=== PATIENT | female | born 1975 | race Caucasian/White ===

== ENCOUNTER → 2020-09-20 13:35 | Outpatient (BNVA) | payer OTHER, SELFPAY | PROVIDERS: PCP Internal Medicine; Visit Provider Anesthesiology | DX: S84.1 Injury of peroneal nerve at lower leg level (principal); X58.XXXS Exposure to other specified factors, sequela; M51.36 Other intervertebral disc degeneration, lumbar region | CPT/HCPCS: 99202 ==

== ENCOUNTER 2020-09-24 09:13 | Outpatient (REF) | payer OTHER, SELFPAY ==
[2020-09-24 11:50] LABS: Alanine Aminotransferase 33 U/L (0-31); Albumin Level 4.5 g/dL (3.5-5.0); Alkaline Phosphatase 58 U/L (39-117); Anion Gap 12 (12-20); Aspartate Amino Transferase 21 U/L (5-31); Bilirubin Total 0.6 mg/dL (0.0-1.0); Blood Urea Nitrogen 10 mg/dL (9-16); Calcium 8.8 mg/dL (8.4-10.2); Carbon Dioxide 25 mmol/L (22-29); Chloride 105 mmol/L (96-108); Cholesterol 180 mg/dL; Estimated Glomerular Filt Rate > 60; Glucose Fasting 87 mg/dL (60-99); HDL Cholesterol 46 mg/dL; LDL Cholesterol Calculated 102 mg/dl; Sodium 138 mmol/L (135-145); Total Protein 7.3 g/dL (6.5-8.0); Triglycerides 162 mg/dL
== END 2020-09-24 09:14 | disposition home or self-care (01) ==
LOC: HO.HMGCLDS 09:13
PROVIDERS: PCP Internal Medicine; Visit Provider Internal Medicine
DX: E78.2 Mixed hyperlipidemia (principal)
CPT/HCPCS: 80053; 80061

== ENCOUNTER → 2020-10-28 16:06 | Outpatient (BNVA) | payer OTHER, SELFPAY | PROVIDERS: PCP Internal Medicine; Referring Provider Internal Medicine; Visit Provider Anesthesiology | DX: M51.36 Other intervertebral disc degeneration, lumbar region (principal); M46.1 Sacroiliitis, not elsewhere classified; S84.1 Injury of peroneal nerve at lower leg level | CPT/HCPCS: 99212 ==

== ENCOUNTER 2020-11-23 06:08 | Outpatient (REF) | payer OTHER, SELFPAY ==
--- NOTE | 2020-11-23 08:12 | FL_ITS ---
EXAMINATION: XR FLUOROSCOPY WITH IMAGES CLINICAL INFORMATION: M46.1 - Sacroiliitis COMPARISON: None. TECHNIQUE: Fluoroscopy performed by Carolina Bruno NP. Fluoroscopy time: 0.2 minutes DAP: 1.33 Gycm2 Images: 2 FINDINGS: There are spinal needles overlying the lower aspect bilateral SI joints. There is periarticular contrast and probable trace intra-articular contrast. No vascular communication. FL/FL guidance in treatment room IMPRESSION: Fluoroscopy for pain management procedures.
== END 2020-11-23 06:09 | disposition home or self-care (01) ==
LOC: HO.RADIR 06:08
PROVIDERS: Visit Provider Anesthesiology
DX: M46.1 Sacroiliitis, not elsewhere classified (principal); S84.1 Injury of peroneal nerve at lower leg level; M51.36 Other intervertebral disc degeneration, lumbar region
CPT/HCPCS: 27096; J3300; Q9967

== ENCOUNTER → 2021-01-03 09:51 | Outpatient (BNVA) | payer OTHER, SELFPAY | PROVIDERS: PCP Internal Medicine; Visit Provider Anesthesiology | DX: M51.36 Other intervertebral disc degeneration, lumbar region (principal); M46.1 Sacroiliitis, not elsewhere classified; S84.1 Injury of peroneal nerve at lower leg level | CPT/HCPCS: 99212 ==

== ENCOUNTER 2021-02-18 10:01 | Outpatient (REF) | payer OTHER, SELFPAY ==
[2021-02-18 11:17] LABS: MANUAL DIFF FLAG NO
[2021-02-18 11:37] LABS: Basophils Percent Auto 0.3 % (0-2); Eosinophils Absolute Auto 0.1 X10*3/uL (0.0-0.4); Hematocrit 38.6 % (37-47); Imm Gran Abs Auto 0.05 X10*3/uL (0.00-0.03); Imm Gran Pct Auto 0.6 % (0.0-0.4); Lymphocytes Absolute Auto 1.7 X10*3/uL (1.2-4.9); Lymphocytes Percent Auto 19.6 % (20-40); Mean Corpuscular HGB Conc 33.7 g/dl (31.0-35.0); Mean Corpuscular Volume 88.9 fL (80-98); Mean Platelet Volume 10.4 fL (9.4-12.3); Monocytes Absolute Auto 0.7 X10*3/uL (0.1-1.2); Monocytes Percent Auto 7.9 % (2-11); Neutrophils Absolute Auto 6.3 X10*3/uL (2.0-8.3); Neutrophils Percent Auto 70.6 % (45-73); Platelet Count 295 X10*3/uL (160-400); Red Blood Count 4.34 X10*6/uL (4.20-5.50); Red Cell Distribution Width 13.2 % (11.0-16.0); White Blood Count 8.9 X10*3/uL (4.8-10.8)
== END 2021-02-18 10:02 | disposition home or self-care (01) ==
LOC: HO.HMGCLDS 10:01
PROVIDERS: PCP Internal Medicine; Visit Provider Internal Medicine
DX: M46.1 Sacroiliitis, not elsewhere classified (principal)
CPT/HCPCS: 36415; 85025

== ENCOUNTER → 2021-03-03 13:38 | Outpatient (BNVA) | payer OTHER, SELFPAY | PROVIDERS: PCP Internal Medicine; Visit Provider Anesthesiology ==

== ENCOUNTER → 2021-04-25 10:41 | Outpatient (BNVA) | payer OTHER, SELFPAY | PROVIDERS: PCP Internal Medicine; Visit Provider Anesthesiology ==

== ENCOUNTER 2021-06-17 11:05 | Day surgery (SDC) | payer OTHER, SELFPAY ==
--- NOTE | 2021-06-16 08:23 | P.CONAN_ITS ---
Documented by User: Muna Laraney 06/16/21 08:23 HPI - Anesthesia Eval Consult details Narrative: 45yo F for Spinal Cord Stimulation Trial PMFSH Active Problems Active Problems: All Active Problems (Updated 04/25/21 @ 11:02 by Sergei Russell MD) Left leg weakness (Acute) Complex regional pain syndrome type 2 (Acute) Complex regional pain syndrome (Acute) Foot drop, left (Acute) Sacroiliitis (Acute) HTN (hypertension) (Acute) Cervical radiculopathy (Acute) Disc degeneration, lumbar (Acute) Peroneal nerve injury (Acute) Past Medical History Medical History Cervical radiculopathy Complex regional pain syndrome Complex regional pain syndrome type 2 Disc degeneration, lumbar Foot drop, left History of mammogram HTN (hypertension) Hyperlipidemia Left leg weakness Sacroiliitis Family History Family History Father Lung cancer Smoker Mother HTN (hypertension) Diabetes mellitus Brother No problems noted. Son No problems noted. Daughter No problems noted. Surgical History Surgical History H/O colonoscopy Hx of appendectomy S/P breast implant, silicone Social History Social History Alcohol intake: current Alcohol intake frequency: a few times a month Patient Tobacco Use Status: Never used Tobacco Use of substances other than those prescribed or required for medical reasons: No Are you DNR?: No Advance Directives: No Advance Directives Information Provided: Yes Recently lost weight without trying: No Nutrition Risks: No Nutritional Risk Meds Allergies Allergy/AdvReac Type Severity Reaction Status Date / Time pravastatin Allergy Unknown Stomach Verified 04/25/21 10:42 Upset lisinopril AdvReac cough Verified 04/25/21 10:42 Home Medications Medication Instructions Recorded Confirmed Last Taken Type gabapentin 100 mg capsule 300 mg PO BEDTIME 09/20/20 03/17/21 Unknown History Exam Exam Date and Time: June 16, 2021 0823 Assessment and Plan Assessment Anesthesia Assessment: Chart Reviewed Documented by User: Alexia Guillen MD 06/17/21 11:52 [facility] Past Medical History Medical History Cervical radiculopathy Complex regional pain syndrome Complex regional pain syndrome type 2 Disc degeneration, lumbar Foot drop, left History of mammogram HTN (hypertension) Hyperlipidemia Left leg weakness Sacroiliitis Family History Family History Father Lung cancer Smoker Mother HTN (hypertension) Diabetes mellitus Brother No problems noted. Son No problems noted. Daughter No problems noted. Family history of problems with anesthesia: No Surgical History Surgical History H/O colonoscopy Hx of appendectomy S/P breast implant, silicone History of Problems with Anesthesia: No Social History Social History Alcohol intake: current Alcohol intake frequency: a few times a month Patient Tobacco Use Status: Never used Tobacco Use of substances other than those prescribed or required for medical reasons: No Are you DNR?: No Advance Directives: No Advance Directives Information Provided: Yes Recently lost weight without trying: No Nutrition Risks: No Nutritional Risk Meds Allergies Allergy/AdvReac Type Severity Reaction Status Date / Time pravastatin Allergy Unknown Stomach Verified 04/25/21 10:42 Upset lisinopril AdvReac cough Verified 04/25/21 10:42 Home Medications Medication Instructions Recorded Confirmed Last Taken Type gabapentin 100 mg capsule 300 mg PO BEDTIME 09/20/20 03/17/21 Unknown History Exam Height,Weight and Vital Signs: Height 5 ft 4 in Weight 62.596 kg Vital Signs Temp Pulse Resp BP Pulse Ox 06/17/21 11:23 98.7 F 73 16 145/95 H 95 Pertinent Lab Results Pertinent Lab Results: Lab Results 06/17/21 Range/Units 11:03 Urine Test NEGATIVE (NEGATIVE) Airway Mallampati Class: II TM Dist: >3cm Neck ROM: Full (A little discomfort with extension) Partial: Upper Heart: RRR Lungs: CTAB Assessment and Plan Final Anesthetic Review Family History of Problems with Anesthesia: No History of Problems with Anesthesia: No NPO: Yes ASA Class: II Final Preanesthetic Review: No Changes in Pt Med Stat, Meds/Allgs Chart Reviewed, Consent Obtained/Reviewed and Anes Risks/Benef Reviewed Patient Risk: Low Procedure Risk: Low Assessment/Block/Sedation in SS: Assess/Block/Sedation-SS Anesthetic Plan Anesthetic Plan: MAC: Disposition: Standard PACU
--- NOTE | ~2021-06-17 | FL_ITS ---
EXAMINATION: XR FLUOROSCOPY WITH IMAGES CLINICAL INFORMATION: Stimulator trial COMPARISON: None. TECHNIQUE: Fluoroscopy performed by Dr. Russell. Fluoroscopy time: 1.7 minutes DAP: 9.52 Gycm2 FINDINGS: Stimulator catheters are seen from T8 to T11. FL/FL guidance in OR IMPRESSION: Stimulator trial.
[2021-06-17 11:17] VITALS: BMI 23.6
[2021-06-17 11:22] LABS: UPreg QC Valid YES; Urine Pregnancy NEGATIVE (NEGATIVE)
[2021-06-17 11:23] VITALS: BP 145/95; PULSE 73; RESP 16; TEMP 37.1; O2SAT 95
[2021-06-17] MEDS: Lactated Ringers 1,000 ML 100 ML IVCONT (11:59)
--- NOTE | 2021-06-17 13:08 | MHC.SHP ---
Pre-Procedural Eval Section A Date of Service: 06/17/21 The patient is an INPATIENT: No Changes since office visit: Yes Patient answered all questions The History & Physical has been completed within 30 days and I have reviewed it.: No Section B Chief Complaint: pain syndrome Details of Present Illness: CRPS LE Relevant Family History (Specify if Yes): No Relevant Social History: None Present Medications: see Short Stay Collaborative assessment Medical History: No relevant PMH History of Previous Operations: Relevant previous surgery/procedure and date(s) Allergies: Allergies Allergy/AdvReac Type Severity Reaction Status Date / Time pravastatin Allergy Unknown Stomach Verified 04/25/21 10:42 Upset lisinopril AdvReac cough Verified 04/25/21 10:42 Review of Systems Sugical H&P ROS: Negative: Constitution, Cardiovascular, Respiratory, Neurological, Psychiatric, Hem-Onc, Allergic/Immunologic, Gastrointestinal, Genitourinary, Musculoskeletal, Integumentary, Endocrine and Eyes/Ears/Nose/Throat Exam Surgical H&P Exam: Normal: HEENT, Normal: Heart, Normal: Lungs, Normal: Extremities, Normal: Abdomen, Normal: Skin and Normal: Neurological Plan Diagnosis/Plan: Unchanged I have reviewed the history and physical and performed a pertinent physical examination on my patient. No changes have occurred unless specified.
[2021-06-17 14:40] VITALS: BP 122/76; PULSE 68; RESP 16; TEMP 36.4; O2SAT 98
--- NOTE | 2021-06-17 14:47 | PM.OP ---
Brief Operative Note Date of Service: 06/27/21 Pre-op diagnosis: Complex regional pain syndrome left lower extremity, chronic back pain, chronic pain syndrome Post-op diagnosis: same Procedure: Trial of [employer] Implants: None per Surgeon: Sergei Russell MD Anesthesia: MAC Was an Regulatory Submissions Associate used for this Procedure?: No Estimated blood loss (mL): 0 Condition: stable Disposition: PACU
--- NOTE | 2021-06-17 14:49 | W.PM.OPN ---
Operative Note Operative Note Date of Service: 06/17/21 Narrative: Winter Melton is very pleasant 45 years old female who came today the operating room for the trial of spinal cord stimulation [employer] machine for the treatment of Complex regional pain syndrome of the left lower extremity and chronic back pain. After obtaining informed consent patient was brought to the operating room, SHE was positioned prone on operating table, [employer] monitors were applied and patient was deeply sedated.? The patient was taken inside of the operating room where she was positioned prone on the operating table.? Time-out was performed delineating correct site, side, the nature of the procedure, patient's allergy, preoperative antibiotic if needed.? All operating room staff was participating in OR time-out procedure. Patient's entire back was prepped with ChloraPrep twice and draped with full body fenestrated drape.? Sterilely draped C-arm was brought over operating field and sqare picture of T11-T12 L1 L2 vertebrae as were demonstrated on the screen.? Attention FIRST? was concentrated on the L1-L2 epidural interspace.? The location of the projection of the right pedicle center of the L3 vertebra was found on the skin using C-arm.? This location was injected with mixture of lidocaine 2% and Marcaine 0.5% 5 cc.? After that 11 blade was used to make a cruz on the skin.? 10 cm 14 gauge curved introducer epidural needle was inserted through the cruz and advanced to L1- L2 epidural interspace.? The advancement of the needle was performed on anterior posterior and lateral views.? Guitar wire and loss of resistance technique were used to locate epidural space.? When guitar wire was spread in the epidural fashion, epidural lead was inserted through the skin and it was advanced to T8 position SLIGHTLY RIGHT OF THE MIDLINE.? After that location of the projection of the LEFT pedicle center of the L3 vertebra was found on the skin using C-arm.? This location was injected with mixture of lidocaine 2% and Marcaine 0.5% 5 cc.? After that 11 blade was used to make a cruz on the skin.? 10 cm 14 gauge curved introducer epidural needle was inserted through the cruz and advanced to L1-L2 epidural interspace.? The advancement of the needle was performed on anterior posterior and lateral views.? Guitar wire and loss of resistance technique were used to locate epidural space.? When guitar wire was spread in the epidural fashion, epidural lead was inserted through the needle and advanced to the T8 epidural interspace slightly left to the midline. At this moment patient was awaken and the epidural leads were connected to the testing device.? The patient reported stimulation corresponding to her pain.? After satisfactory position of the leads were established the needles were withdrawn, the stylette wires were removed from the epidural leads.? The anchoring devices were dislodged on the leads and advanced to the level of the skin.? The anchoring devices were sutured with two 0-0 silk sutures to the skin of the patient.? The leads were connected to testing device.? Bacitracin ointment was applied to the entrance point of bilateral needles.? Sterile dressing was applied to the patient's back.? The testing device was also glued to the patient's back.? Upon completion of the procedure the patient was awake and she was transfered to the PACU where she recovered uneventfully
[2021-06-17 14:55] VITALS: BP 137/79; PULSE 61; RESP 16; O2SAT 99
[2021-06-17] MEDS: oxyCODONE HCl Immed Release 5 MG TABLET PO (14:55)
[2021-06-17] MEDS: Acetaminophen 325 MG TABLET 650 MG PO (14:55)
[2021-06-17 15:10] VITALS: BP 143/81; PULSE 61; RESP 16; O2SAT 99
[2021-06-17 15:31] VITALS: BP 150/78; PULSE 65; RESP 16; TEMP 36.4; O2SAT 96
== END 2021-06-17 16:09 | disposition home or self-care (01) ==
PROVIDERS: Nurse Practitioner; PCP Internal Medicine; Visit Provider Anesthesiology
PROC: (CPT 63650; principal; 2021-06-17 13:00)
DX: G57.72 Causalgia of left lower limb (principal); M54.5 Low back pain; M46.1 Sacroiliitis, not elsewhere classified; R53.1 Weakness; M21.372 Foot drop, left foot; M51.36 Other intervertebral disc degeneration, lumbar region; I10 Essential (primary) hypertension; E78.5 Hyperlipidemia, unspecified; Z98.82 Breast implant status
CPT/HCPCS: 63650 ×2; 81025; C1778; J0690; J2250; J2405; J3010

== ENCOUNTER → 2021-06-23 10:32 | Outpatient (BNVA) | payer OTHER, SELFPAY | PROVIDERS: PCP Internal Medicine; Visit Provider Nurse Practitioner Family | DX: S84.12XD Injury of peroneal nerve at lower leg level, left leg, subsequent encounter (principal); M51.36 Other intervertebral disc degeneration, lumbar region; M21.372 Foot drop, left foot; G56.40 Causalgia of unspecified upper limb | CPT/HCPCS: 99212 ==

== ENCOUNTER 2021-07-22 07:00 | Outpatient (RCR) | payer OTHER, SELFPAY ==
--- NOTE | 2021-04-07 15:41 | MHC.PT.EP ---
[facility] [place] Office [place] Office [place] Office [address] Gustavo Quintero [address] [phone] F: [phone] F: [phone] F: [phone] F: [phone] Physical Therapy Plan of Care Date of Evaluation: Date of Surgery: Diagnosis: LEFT LE WEAKNESS , LUMBAR DISC DEGENERATION Assessment: 45 YO FEMALE REF TO PT FOR LEFT FOOT DROP, LUMBAR DISC DEGENERATION, COMPLEX REGIONAL PAIN SYNDROME S/P SUSTAINING A FALL ONTO LEFT SIDE ON 05/11/20. 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 OBJECTIVELY, Pt HAS PAIN IN LB/ LEFT DISTAL LE/ KNEE; LIMITED AROM LEFT DISTAL LE, WEAKNESS IN LEFT LE AND ESPEC DF/EVER W HYPERSENSITIVITY. FUNCTIONALLY, Pt HAS DECR GAIT MICHELLE (NO AD EXCEPT FOR LEFT AFO), LIMITED W ADLs REQ LIFTING/ BENDING/ JUMPING/ HIGHER LEVEL HOUSEWORK- SHE IS ABLE TO DRIVE AND IS INDEP W DRESSING. Pt HAS HAD PREVIOUS OFF-SITE PT THROUGH 04/05/2021. Frequency and Duration: The patient will be seen 2 x WK x 5 WKS Short Term Goals: Pt JAYANTON WFL PROX LEs FLEXIB AND IMPROVED PELVIC SYMM IN 2 WKS Pt [place] IMPROVED GAIT MECH LEVEL AND STAIRS IN 2 WKS Pt'S PAIN DECR TO 3-4/10 IN LB AND DISTAL LEFT LE IN 3 WKS Coater Smoking Pipe Goals: Pt INDEP W HEP AND SELF-SX MGMT TECHN IN 5 WKS Pt [place] IMPROVED FUNCT MOB MICHELLE EVIDENT W IMPROVED LEFT BY AT LEAST 10 POINTS( AT EVAL 10/80) IN 5 WKS Treatment Plan: Modalities to reduce pain, spasms and effusion. Manual therapy to restore motion and function. Therapeutic exercise to improve strength and flexibility. Neuromuscular re-education for posture and balance. Therapeutic activities to return to functional activities of daily living. Electronically signed by: Terri Christianson,PT Please sign and return to therapist. Thank you for your referral.
--- NOTE | 2021-07-22 09:37 | MHC.PT.DC ---
[facility] [place] Office [place] Office [place] Office [address] Gustavo Quintero [address] [phone] F: [phone] F: [phone] F: [phone] F: [phone] Physical Therapy Discharge Report Diagnosis: LEFT LE WEAKNESS , LUMBAR DISC DEGENERATION Date of Surgery: NA Date of Evaluation: 04/06/21 Date of Discharge: 07/22/21 Treatments to Date: 18 Cancellations to Date: 0 No Shows to Date: 1 Discharge Status: Independent with HEP Patient Elected to Stop Discharge Summary: Pt with minimal-no change since last re-assessment 05/24. She reports she would like to be d/c today as she will be changing to another PT clinic to include her R UE/neck as well as continue with her low back/ R LE and foot. She feels that she has made minimal progress but that the therapy has helped maintain her current status. Reviewed HEP and pacing. No further questions. Electronically signed by: Natalie Jackson PT Please sign and return to therapist. Thank you for your referral.
== END 2021-07-22 09:38 | disposition home or self-care (01) ==
LOC: HO.PTCHIC 07:00
PROVIDERS: PCP Internal Medicine; Visit Provider Internal Medicine
DX: M51.36 Other intervertebral disc degeneration, lumbar region (principal); R29.898 Other symptoms and signs involving the musculoskeletal system
CPT/HCPCS: 97110; 97112; 97140; 97163

== ENCOUNTER → 2021-08-11 10:58 | Outpatient (BNVA) | payer OTHER, SELFPAY | PROVIDERS: PCP Internal Medicine; Visit Provider Anesthesiology ==

== ENCOUNTER 2021-08-18 10:52 | Day surgery (SDC) | payer OTHER, SELFPAY ==
[2021-08-12 10:15] VITALS: BMI 23.3
--- NOTE | 2021-08-17 11:00 | HO.ANESPROP2 ---
Documented by User: Muna Sharp NP 08/17/21 11:03 HPI - Anesthesia Eval Consult details Narrative: 45yo F for Lumbar Spinal Stimulation Implant s/p Spinal Cord Stimulation Trial 06/2021 with MAC PMFSH Active Problems Active Problems: All Active Problems (Updated 06/27/21 @ 13:22 by Carolina Bruno NP) Peroneal nerve injury (Acute) Left leg weakness (Acute) Complex regional pain syndrome type 2 (Acute) Complex regional pain syndrome (Acute) Foot drop, left (Acute) Sacroiliitis (Acute) HTN (hypertension) (Acute) Cervical radiculopathy (Acute) Disc degeneration, lumbar (Acute) Past Medical History Medical History Cervical radiculopathy Complex regional pain syndrome Complex regional pain syndrome type 2 Disc degeneration, lumbar Foot drop, left History of mammogram HTN (hypertension) Hyperlipidemia Left leg weakness Sacroiliitis Family History Family History Father Lung cancer Smoker Mother HTN (hypertension) Diabetes mellitus Brother No problems noted. Son No problems noted. Daughter No problems noted. Family history of problems with anesthesia: No Surgical History Surgical History H/O colonoscopy Hx of appendectomy S/P breast implant, silicone S/P insertion of spinal cord stimulator History of Problems with Anesthesia: No Social History Social History Alcohol intake: current Alcohol intake frequency: a few times a month Patient Tobacco Use Status: Never used Tobacco Advance Directives Information Provided: No Meds Allergies Allergy/AdvReac Type Severity Reaction Status Date / Time pravastatin Allergy Unknown Stomach Verified 08/11/21 11:06 Upset lisinopril AdvReac cough Verified 08/11/21 11:06 Exam Exam Date and Time: August 17, 2021 1100 Height,Weight and Vital Signs: Height 5 ft 4 in Weight 61.689 kg Assessment and Plan Assessment Anesthesia Assessment: Chart Reviewed Final Anesthetic Review Family History of Problems with Anesthesia: No History of Problems with Anesthesia: No Documented by User: Alexia Guillen MD 08/18/21 12:28 [facility] Past Medical History Medical History Cervical radiculopathy Complex regional pain syndrome Complex regional pain syndrome type 2 Disc degeneration, lumbar Foot drop, left History of mammogram HTN (hypertension) Hyperlipidemia Left leg weakness Sacroiliitis Family History Family History Father Lung cancer Smoker Mother HTN (hypertension) Diabetes mellitus Brother No problems noted. Son No problems noted. Daughter No problems noted. Surgical History Surgical History H/O colonoscopy Hx of appendectomy S/P breast implant, silicone S/P insertion of spinal cord stimulator Social History Social History Alcohol intake: current Alcohol intake frequency: a few times a month Patient Tobacco Use Status: Never used Tobacco Advance Directives Information Provided: No Meds Allergies Allergy/AdvReac Type Severity Reaction Status Date / Time pravastatin Allergy Unknown Stomach Verified 08/11/21 11:06 Upset lisinopril AdvReac cough Verified 08/11/21 11:06 Exam Height,Weight and Vital Signs: Height 5 ft 4 in Weight 61.689 kg Vital Signs Temp Pulse Resp BP Pulse Ox 08/18/21 11:17 99.4 F 70 16 135/87 98 Pertinent Lab Results Pertinent Lab Results: Lab Results 08/18/21 Range/Units 10:59 Urine Test NEGATIVE (NEGATIVE) Airway Mallampati Class: II TM Dist: >3cm Neck ROM: Full Partial: Upper Heart: RRR Lungs: CTAB Assessment and Plan Assessment Anesthesia Assessment: Anesthesia Plan Discussed Final Anesthetic Review NPO: Yes ASA Class: II Final Preanesthetic Review: No Changes in Pt Med Stat, Meds/Allgs Chart Reviewed, Consent Obtained/Reviewed and Anes Risks/Benef Reviewed Patient Risk: Low Procedure Risk: Intermediate Assessment/Block/Sedation in SS: Assess/Block/Sedation-SS Anesthetic Plan Anesthetic Plan: MAC: Disposition: Standard PACU
[2021-08-18] VITALS (8 sets, daily range): BP systolic 108–135; BP diastolic 64–87; PULSE 57–72; RESP 14–16; TEMP 36.4–37.4; O2SAT 98–100
--- NOTE | ~2021-08-18 | FL_ITS ---
EXAMINATION: XR FLUOROSCOPY WITH IMAGES CLINICAL INFORMATION: Lumbar spinal stimulation implant. COMPARISON: None. TECHNIQUE: Fluoroscopy performed by Dr. Sergei Russell. Fluoroscopy time: 2.0 minutes DAP: 6.98 mGycm2 Images: 2 FINDINGS: There is lower dorsal posterior epidural electrodes extending from T9 to T10-T11 disc level. Visualized vertebral heights and alignment is normal. No lytic or sclerotic process seen. FL/FL guidance in OR IMPRESSION: Fluoroscopy was provided to Dr. Russell for pain management.
--- NOTE | 2021-08-18 07:59 | MHC.SHP ---
Pre-Procedural Eval Section A Date of Service: 08/18/21 The patient is an INPATIENT: No Changes since office visit: Yes Patient answered all questions The History & Physical has been completed within 30 days and I have reviewed it.: No Section B Chief Complaint: Complex regional pain syndrome type 2 Details of Present Illness: pain in the extremity Relevant Family History (Specify if Yes): No Relevant Social History: None Present Medications: see Short Stay Collaborative assessment Medical History: No relevant PMH History of Previous Operations: Relevant previous surgery/procedure and date(s) Allergies: Allergies Allergy/AdvReac Type Severity Reaction Status Date / Time pravastatin Allergy Unknown Stomach Verified 08/11/21 11:06 Upset lisinopril AdvReac cough Verified 08/11/21 11:06 Review of Systems Sugical H&P ROS: Negative: Constitution, Cardiovascular, Respiratory, Neurological, Psychiatric, Hem-Onc, Allergic/Immunologic, Gastrointestinal, Genitourinary, Musculoskeletal, Integumentary, Endocrine and Eyes/Ears/Nose/Throat Exam Surgical H&P Exam: Normal: HEENT, Normal: Heart, Normal: Lungs, Normal: Extremities, Normal: Abdomen, Normal: Skin and Normal: Neurological Plan Diagnosis/Plan: Unchanged I have reviewed the history and physical and performed a pertinent physical examination on my patient. No changes have occurred unless specified.
--- NOTE | 2021-08-18 08:01 | P.OP_ITS ---
Operative Note Operative Note Date of Service: 08/18/21 Narrative: Winter is very pleasant 45 years old female? came today into the operating room for implantation of spinal cord stimulator for the treatment of pain Complex regional pain syndrome of the left lower extremity. ? She had successful trial of spinal cord stimulation.? Preoperatively patient received? 1 g cefazolin _approximately 20 minutes before the procedure. After obtaining informed consent patient was brought to the operating room,? she was positioned prone on operating table, [employer] [employer] monitors were applied and patient was deeply sedated. ?? Time-out was performed delineating correct site, side, the nature of the procedure, patient's allergy, preoperative antibiotic.? All operating room staff was participating in OR time-out procedure. Patient's entire back was prepped with ChloraPrep twice and draped with full body drape including Ioban film.? Sterilely draped C-arm was brought over operating field and sqare picture of T12, L1, L2 vertebrae were demonstrated on the screen.? THE PROJECTION OF L2-L3 SPINAL PROCESSES TO THE SKIN WERE INFILTRATED WITH LIDOCAINE 2% MIXED WITH BUPIVACAINE 0.5%.? Six CM LONG VERTICAL INCISION using 10 blade scalpel WAS PERFORMED IN STRICT MIDLINE VERTICAL FASHION.? THOROUGH HEMOSTASIS WAS PERFORMED using electrocautery.? ?Thorough tissue dissections was performed until prevertebral fascia was freed from overlying tissues.? Attention FIRST? was concentrated on the RIGHT? L1-L2 epidural interspace.? The location of the projection of the right pedicle center of the L3 vertebra was found on the prevertebral fascia using C-arm.? This location was injected with mixture of lidocaine 2% and Marcaine 0.5% 5 cc in approximate direction of needle advancement..? After that ? 10 cm 14 gauge Straight introducer epidural needle was inserted through the fascia and advanced toward L1-L2 epidural interspace.? The advancement of the needle was performed on anterior posterior and lateral views.? Guitar wire and loss of resistance technique were used to locate epidural space.? When guitar wire was spread in the epidural fashion, epidural lead was inserted through needle and started to advance in posterior epidural space to the thoracic vertebra T9-T10 without difficulty. This epidural lead was positioned strictly at the midline. After that location of the projection of the LEFT pedicle center of the? L2 vertebra was found -using C-arm.? This location was injected with mixture of lidocaine 2% and Marcaine 0.5% 5 cc.. .? Initially 16 cm 14 gauge? straight introducer epidural needle was inserted through the fascia and advanced to L1-L2 epidural interspace . The advancement of the needle was performed on anterior posterior and lateral views.? Guitar wire and loss of resistance technique were used to locate epidural space.? When guitar wire was spread in the epidural fashion, epidural lead was inserted through the needle and advanced to the mid T9 POSTERIOR EPIDURAL SPACE SLIGHTLY left TO THE MIDLINE.? THE LOCATION OF BOTH LEADS WAS VERIFIED ON ANTERIOR POSTERIOR AND LATERAL VIEWS. At this moment patient was awaken and the epidural leads were connected to the testing device.? The patient reported stimulation corresponding to her pain.? After satisfactory position of the leads were established the needles were withdrawn, the stylette wires were removed from the epidural leads.? The anchoring devices were dislodged on the leads and advanced to the level of the skin.? The anchoring devices were advanced along the epidural leads and dislodged and epidural leads at the level of prevertebral fascia.? They were sutured to prevertebral fascia with 2 separate? Tycron 1.0 sutures per each anchoring device.? anchoring screw was tight until 3 clicks were heard on each anchoring device.After that the wound was irrigated with copious amount of Vancomycin containing normal saline and packed with Vancomycin soaked 4 x 4. After that attention was concentrated on the left? upper buttock of the patient where the patient wanted her battery to be implanted.? 6 cm long horizontal incision was performed 3 cm below the TOP right iliac crest.? Thorough hemostasis was obtained.? The wound was irrigated with copious amount of Vancomycin contained normal saline.? Tunneling device was used to connect the 2 wounds and epidural leads were dislodged into side wound.? They were connected to the [employer] battery and locked with a locking screwdriver device.? the care was taken also to make sure that plaques for upper? outlets screwed in place. After that the anchoring sutures Tycron were applied in the most superior medial and most superior lateral corners of the wound.? After that they were connected to the anchoring holes on the body of the battery, the epidural leads were gathered? behind the body of the ALPHA battery, the battery and the leads were inserted into the pocket wound and after that the 2 anchoring sutures were tied.? The wounds were irrigated again with Vancomycin containing normal saline, thorough hemostasis was checked, and after that the wounds were closed using 0 Vicryl.? After that the skin edges wore approximated using 2 0 Vicryl, krystian were applied to the wounds at the level of the skin.? Bacitracin ointment was applies to the level of the krystian and sterile dressings were applied to the staple lines. ? MediPore tape was used to hold the dressing to the patient's skin.? Abdominal binder to wear was provided to the patient.? At this moment patient was awaken and transferred to the bed.? SHE was recovering uneventfully in PACU.? ?
[2021-08-18 11:13] LABS: UPreg QC Valid YES; Urine Pregnancy NEGATIVE (NEGATIVE)
[2021-08-18] MEDS: Lactated Ringers 1,000 ML 100 ML IVCONT (11:33)
--- NOTE | 2021-08-18 14:37 | P.BOP_ITS ---
Brief Operative Note Date of Service: 08/18/21 Pre-op diagnosis: Complex regional pain syndrome type 2 left lower extremity Procedure: Implant of spinal cord stimulator [employer] Implants: Alpha battery and 2 epidural leads. Surgeon: Sergei Russell MD Anesthesia: MAC Was an [employer] used for this Procedure?: No Estimated blood loss (mL): 28 Pathology: none sent Condition: stable
[2021-08-18] MEDS: Acetaminophen 325 MG TABLET 650 MG PO (14:48)
== END 2021-08-18 16:18 | disposition home or self-care (01) ==
PROVIDERS: Nurse Practitioner; PCP Internal Medicine; Visit Provider Anesthesiology
PROC: (CPT 63685; principal; 2021-08-18 12:30)
DX: G57.72 Causalgia of left lower limb (principal); S84.12XA Injury of peroneal nerve at lower leg level, left leg, initial encounter; W19.XXXA Unspecified fall, initial encounter; Y93.9 Activity, unspecified; Y92.9 Unspecified place or not applicable; Y99.8 Other external cause status; M21.372 Foot drop, left foot; R53.1 Weakness; M54.50 Low back pain, unspecified; M51.36 Other intervertebral disc degeneration, lumbar region; I10 Essential (primary) hypertension; Z79.899 Other long term (current) drug therapy
CPT/HCPCS: 63685; 63650 ×2; 81025; C1713; C1778; C1787; C1820; J0690; J2250; J3010; J3370

== ENCOUNTER → 2021-08-24 11:33 | Outpatient (BNVA) | payer OTHER, SELFPAY | PROVIDERS: PCP Internal Medicine; Visit Provider Anesthesiology | DX: M51.36 Other intervertebral disc degeneration, lumbar region (principal); M21.372 Foot drop, left foot; G56.40 Causalgia of unspecified upper limb; S84.1 Injury of peroneal nerve at lower leg level | CPT/HCPCS: 99212 ==

== ENCOUNTER → 2021-08-31 11:35 | Outpatient (BNVA) | payer OTHER, SELFPAY | PROVIDERS: PCP Internal Medicine; Visit Provider Anesthesiology | DX: M51.36 Other intervertebral disc degeneration, lumbar region (principal); M21.372 Foot drop, left foot; G56.40 Causalgia of unspecified upper limb; S84.1 Injury of peroneal nerve at lower leg level | CPT/HCPCS: 99212 ==

== ENCOUNTER 2021-11-30 07:48 | Outpatient (REF) | payer OTHER, SELFPAY ==
[2021-11-30 11:28] LABS: Hemoglobin 12.4 g/dl (12.0-16.0); Mean Corpuscular HGB Conc 32.6 g/dl (31.0-35.0); Mean Corpuscular Hemoglobin 28.8 pg (27.0-33.0); Mean Corpuscular Volume 88.2 fL (80.0-98.0); Mean Platelet Volume 10.5 fL (9.4-12.3); Platelet Count 287 X10*3/uL (160-400); Red Blood Count 4.31 X10*6/uL (4.20-5.50); Red Cell Distribution Width 12.9 % (11.0-16.0); White Blood Count 7.2 X10*3/uL (4.8-10.8)
[2021-11-30 11:34] LABS: Appearance Urine HAZY; Color Urine YELLOW; Glucose Urine UA NEG (NEG); Leukocyte Esterase Urine NEG (NEG); Nitrite Urine NEG (NEG); Specific Gravity - Urine 1.015 (1.005-1.025); Urine Blood NEG (NEG); Urine Ketones NEG (NEG); Urine Protein NEG (NEG-TRACE)
[2021-11-30 12:13] LABS: Bacteria Urine TRACE /LPF; RBC Urine 0 /HPF (0); Squamous Epithelial Cell Urine 1+ /LPF
[2021-11-30 12:15] LABS: Amorphous Sediment Urine TRACE /LPF; WBC Urine 0-2 /HPF (0-4)
[2021-11-30 12:27] LABS: Alanine Aminotransferase 29 U/L (0-31); Albumin Level 4.3 g/dL (3.5-5.0); Alkaline Phosphatase 55 U/L (39-117); Anion Gap 13 (12-20); Aspartate Amino Transferase 24 U/L (5-31); Bilirubin Total 0.6 mg/dL (0.0-1.0); Blood Urea Nitrogen 7 mg/dL (9-16); Calcium 9.5 mg/dL (8.4-10.2); Carbon Dioxide 24 mmol/L (22-29); Chloride 107 mmol/L (96-108); Cholesterol 171 mg/dL; Estimated Glomerular Filt Rate > 60; Glucose Fasting 80 mg/dL (60-99); HDL Cholesterol 45 mg/dL; LDL Cholesterol Calculated 84 mg/dl; Potassium 4.1 mmol/L (3.3-5.1); Sodium 140 mmol/L (135-145); Total Protein 7.4 g/dL (6.5-8.0); Triglycerides 210 mg/dL
== END 2021-11-30 07:49 | disposition home or self-care (01) ==
LOC: HO.HMGCLDS 07:48
PROVIDERS: Visit Provider Internal Medicine
DX: E78.5 Hyperlipidemia, unspecified (principal); I10 Essential (primary) hypertension
CPT/HCPCS: 36415; 80053; 80061; 81001; 84443; 85027

== ENCOUNTER 2022-06-13 07:00 | Outpatient (RCR) | payer OTHER, SELFPAY | END 2022-06-23 08:22 | disposition home or self-care (01) | LOC: HO.PT 07:00 | PROVIDERS: PCP Internal Medicine; Visit Provider Psychiatry & Neurology Neurology | DX: M21.372 Foot drop, left foot (principal) | CPT/HCPCS: 97110; 97112; 97162; 97164; 97530 ==

== ENCOUNTER 2022-12-13 07:09 | Outpatient (REF) | payer OTHER, SELFPAY ==
[2022-12-13 12:13] LABS: Alanine Aminotransferase 21 U/L (0-31); Albumin Level 4.6 g/dL (3.5-5.0); Alkaline Phosphatase 64 U/L (39-117); Anion Gap 13 (12-20); Aspartate Amino Transferase 17 U/L (5-31); Bilirubin Total 0.6 mg/dL (0.0-1.0); Blood Urea Nitrogen 5 mg/dL (9-16); Calcium 9.6 mg/dL (8.4-10.2); Carbon Dioxide 26 mmol/L (22-29); Chloride 104 mmol/L (96-108); Cholesterol 206 mg/dL; Estimated Glomerular Filt Rate > 60; Glucose Fasting 101 mg/dL (60-99); HDL Cholesterol 46 mg/dL; LDL Cholesterol Calculated 115 mg/dl; Potassium 4.2 mmol/L (3.3-5.1); Sodium 139 mmol/L (135-145); Total Protein 7.7 g/dL (6.5-8.0); Triglycerides 229 mg/dL
== END 2022-12-13 07:10 | disposition home or self-care (01) ==
LOC: HO.HMGCLDS 07:09
PROVIDERS: PCP Internal Medicine; Visit Provider Internal Medicine
DX: I10 Essential (primary) hypertension (principal); E78.5 Hyperlipidemia, unspecified
CPT/HCPCS: 36415; 80053; 80061

== ENCOUNTER → 2022-12-21 08:20 | Outpatient (BNVA) | payer OTHER, SELFPAY | PROVIDERS: PCP Internal Medicine; Referring Provider Internal Medicine; Visit Provider Internal Medicine | DX: I10 Essential (primary) hypertension (principal); R00.2 Palpitations | CPT/HCPCS: 93005 ==

== ENCOUNTER → 2023-01-02 07:52 | Outpatient (REF) | payer OTHER, SELFPAY ==
--- NOTE | 2023-01-02 07:56 | CA_ITS ---
Transthoracic Echocardiogram Patient (Last, First, Middle): Winter Melton, Gender: Female Date of : 1975 Age: 47 Procedure Date: 01/02/2023 Procedure Type: Transthoracic Echocardiogram Location: OP Height: 160.02 cm Weight: 63.5 kg BSA: 1.66 m2 Heart Rate: bpm BP: 160 / 100 mmHg Pediatric Speech Language Pathologist: BLANQUITA Referring MD: Allen López MD Symptoms: I10 - Essential (primary) hypertension Study Quality: Fair ECG Rhythm: Sinus Conclusions: - The left ventricular systolic function is normal. The calculated ejection fraction is 63% by biplane method. - There is mild septal asymmetric hypertrophy. - No obvious valvular pathology seen on this study. Findings Left Ventricle Normal left ventricular cavity size. The left ventricular systolic function is normal. The calculated ejection fraction is 63% by biplane method. There is no evidence of regional wall motion abnormalities. Diastolic function is normal for age. There is mild septal asymmetric hypertrophy. LV peak GLS 20.5%. Right Ventricle Normal right ventricular cavity size and systolic function. Atria Both atria are normal in size. Aortic Valve There is a normal trileaflet aortic valve. There is no aortic valve stenosis. There is no aortic valve regurgitation. Mitral Valve The mitral valve appears normal. There is trace mitral valve regurgitation. There is no mitral valve stenosis. Pulmonic Valve The pulmonic valve is likely normal. Tricuspid Valve Normal tricuspid valve structure. There is trace tricuspid valve regurgitation. There is no evidence of pulmonary hypertension. Great Vessels The asc aorta and aortic arch are normal in size. Venous The inferior vena cava is normal in size and collapses greater than 50% with inspiration. Pericardium/Pleural There is no evidence of pericardial effusion. Prior Study Comparison No prior study available for comparison. Recommendations, Care & Conclusions No obvious valvular pathology seen on this study. Measurements 2D Linear Measurements IVSd: 1.14 0.6-0.9/0.6-1.0 cm LVIDd: 4.25 3.9-5.3/4.2-5.9 cm LVIDd Index: 2.56 2.4-3.2/2.2-3.1 cm/m2 LVIDs: 2.64 2.0-3.6 cm LVPWd: 0.89 0.7-1.1 cm LA Diam: 3.10 2.7-3.8/3.0-4.0 cm LAIDs Index: 1.87 1.5-2.3 cm/m2 LV Mass: 177.74 67-162/88-224 g LV Mass Index: 107.07 43-95/49-115 g/m2 LVOT Diam: 1.90 3.0+(-)1.3 cm 2D Systolic Function EF 4C: 63.50 >55% EF 2C: 62.20 >55% EF BiP: 62.80 >55% Mitral Valve MV Pk E: 0.79 MV PK A: 0.70 MV Decel Time: 250.00 E/A: 1.10 E'Lateral: 13.60 E'Medial: 7.83 E/E' Med: 10.10 E/E' Lat: 5.80 PHT: 73.00 MVA PHT: 3.01 Decel Elbert: 3.17 Aortic Valve AoV Pk Mariusz: 1.62 AoV Mn Mariusz: 1.09 AoV VTI: 0.35 AoV Pk Grad: 10.00 Aov Mn Grad: 5.00 ISIDRO Cont.VTI: 1.66 LVOT LVOT Pk Mariusz: 0.97 LVOT Mn Mariusz: 0.67 LVOT VTI: 0.20 LVOT Pk Grad: 4.00 LVOT Mn Grad: 2.00 LVOT Diam: 1.90 LVOT Area: 2.84 Diastolic Function MV Pk E: 0.79 MV Pk A: 0.70 E/A: 1.10 E'Medial: 7.83 E/E' Med: 10.10 E' Laterial: 13.60 E/E' Lat: 5.80 Right Ventricle TAPSE (mm): 20.70 TVS' Mariusz: 10.60 Tricuspid Valve TR Pk Mariusz: 1.05 TR Pk Grad: 4.00 RA Press: 3.00 RVSP: 7.00 Great Vessels Aorta Sinus of Valsalva: 3.00 2.0-3.5 cm Ao Asc: 3.10 2.1-3.4 cm Ao Arch: 2.90 Updated in Other Vendor System with Status of Final Allen López MD electronically signed on 01/02/2023 11:09:14 AM with status of Final
--- NOTE | 2023-01-02 07:56 | HM_ITS ---
conclusion: 1. Patient was monitored for total period of 5 days and 22 hours 2. Baseline was normal sinus rhythm with average heart of 74 beats per minute 3. Very rare PACs noted 4. No significant pauses or bradycardia noted 5. No patient reported events MTDD
== END ==
LOC: HO.CARD 07:52
PROVIDERS: PCP Internal Medicine; Visit Provider Internal Medicine
DX: I10 Essential (primary) hypertension (principal); R00.2 Palpitations
CPT/HCPCS: 93242; 93306; 93356

== ENCOUNTER 2023-01-05 08:35 | Outpatient (REF) | payer OTHER, SELFPAY ==
--- NOTE | ~2023-01-05 | US_ITS ---
EXAMINATION: ULTRASOUND OF KIDNEYS WITH RENAL ARTERY DOPPLER CLINICAL INFORMATION: Hypertension. COMPARISON: None. TECHNIQUE: Ultrasound of the kidneys was performed along with color flow Doppler imaging and velocity measurements in the proximal mid and distal renal arteries. Aortic velocities were measured and renal/aortic ratios were calculated. In addition, segmental resistive indices were calculated. FINDINGS: The kidneys appeared normal with the right kidney measuring 12.6 cm and the left kidney measuring 13.2 cm. There is a left lower pole 2 mm nonobstructing calculus present. No renal masses, additional renal stones or hydronephrosis is seen. Renal cortical thickness appears normal. On the right velocity measurements in the proximal mid and distal renal arteries are normal. Velocity in the aorta is normal and, therefore, the right renal aortic ratios is normal. On the left, there is mild increase in the mid renal artery velocity at 223 cm/s suggesting a stenosis. Segmental resistive indices in both kidneys were measured and were normal. US/US renal doppler IMPRESSION: Elevated velocities in the mid left renal artery suggesting the possibility of a renal artery stenosis. CT angiography is recommended for further evaluation.
--- NOTE | ~2023-01-05 | US_ITS ---
EXAMINATION: US RETROPERITONEAL LIMITED (RENAL ONLY) CLINICAL INFORMATION: Atherosclerosis of renal artery, hypertension. COMPARISON: Ultrasound retroperitoneal limited (renal only) 08/15/2018. TECHNIQUE: Real-time imaging of the kidneys. FINDINGS: RIGHT KIDNEY: 12.6 x 5.0 x 4.9 cm (SAG x AP x TRV). The kidney is normal in size, contour, and echogenicity. Renal cortical thickness is normal. No calculi or focal parenchymal lesions. No hydronephrosis. LEFT KIDNEY: 13.2 x 5.7 x 4.8 cm (SAG x AP x TRV). The kidney is normal in size, contour, and echogenicity. Renal cortical thickness is normal. No focal parenchymal lesions. There is a lower pole 2 mm echogenic focus seen suggesting a nonobstructing calculus. No additional calculi. US/US renal BI IMPRESSION: Question of a nonobstructing tiny left lower pole calculus.
== END 2023-01-05 08:36 | disposition home or self-care (01) ==
LOC: HO.HMGCX 08:35
PROVIDERS: PCP Internal Medicine; Visit Provider Internal Medicine
DX: I10 Essential (primary) hypertension (principal); I70.1 Atherosclerosis of renal artery
CPT/HCPCS: 76775; 93975

== ENCOUNTER → 2023-01-11 12:54 | Outpatient (BNVA) | payer OTHER, SELFPAY | PROVIDERS: PCP Internal Medicine; Visit Provider Physician Assistant | DX: Z13.89 Encounter for screening for other disorder (principal) ==

== ENCOUNTER 2023-01-15 09:55 | Outpatient (REF) | payer OTHER, SELFPAY | END 2023-01-15 09:56 | disposition home or self-care (01) | LOC: HO.LNP 09:55 | PROVIDERS: Visit Provider Physician Assistant | DX: A04.8 Other specified bacterial intestinal infections (principal) | CPT/HCPCS: 87338 ==

== ENCOUNTER 2023-01-25 08:23 | Outpatient (REF) | payer OTHER, SELFPAY ==
--- NOTE | ~2023-01-25 | CT_ITS ---
EXAMINATION: CT ANGIOGRAM ABDOMEN CLINICAL INFORMATION: Question of renal vascular hypertension. COMPARISON: Renal Doppler ultrasound 01/05/2023: Elevated velocities in the mid left renal artery suggesting the possibility of a renal artery stenosis. CT angiography is recommended for further evaluation. TECHNIQUE: Multiple axial images were obtained through the abdomen following the administration of 80 mL Omnipaque 350 intravenous contrast. Additional 2-D coronal and sagittal reformatted images and axial 3-D maximum intensity projection MIP images are generated on the CT workstation. This CT examination was performed using dose optimization techniques as appropriate, variously including the following: *Automated exposure control *Adjustment of mA and/or kV according to patient size (this includes techniques or standardized protocols for targeted exams where dose is matched to indication/reason for exam; i.e. extremities or head) *Use of iterative reconstruction technique DLP: 134 mGy-cm FINDINGS: VASCULAR FINDINGS: The abdominal aorta and visualized iliac vessels appear unremarkable with the exception of some minimal areas of calcific plaque. There is no stenosis, dissection or aneurysm. The celiac, SMA and JE are all widely patent. There are 2 renal arteries present on the right without evidence of stenosis. There are 3 renal arteries present on the left also with no evidence of renal artery stenosis. NONVASCULAR FINDINGS: Lung Bases: The visualized lung bases are unremarkable. Liver, Gallbladder, and Biliary Tree: The liver is normal in size, shape, and attenuation. No focal hepatic lesion or biliary ductal dilatation is present. The gallbladder is unremarkable with no evidence of radiopaque gallstones, gallbladder wall thickening, or obvious pericholecystic inflammatory changes. Pancreas: Unremarkable. Spleen: Unremarkable. Adrenal Glands: The left adrenal gland is minimally thickened but no discrete mass is seen. The right adrenal gland appears normal. Kidneys and Ureters: The kidneys are normal in size, shape, and attenuation. No hydronephrosis, hydroureter, or calculi seen. No perinephric stranding. Gastrointestinal Tract: The small and large bowel are unremarkable. The appendix is unremarkable. Abdominal Wall: No significant hernia is appreciated. There is partial visualization of a neurostimulator in the left buttock with leads extending into the spinal canal. Bilateral breast implants are present. Lymph Nodes: No retroperitoneal lymphadenopathy. Osseous Structures: Unremarkable. Incidental note made of a limbus vertebrae at the inferior endplate of L5. CT/CT angio abdomen IMPRESSION: 1. No evidence of renal artery stenosis. There are 2 renal arteries present on the right and 3 renal arteries present on the left. 2. Incidental findings as described above. Fleischner guidelines were followed.
[2023-01-25] MEDS: iohexoL 350 MG/ML 100 ML INFUS..BTL IV (09:04)
== END 2023-01-25 08:24 | disposition home or self-care (01) ==
LOC: HO.CT 08:23
PROVIDERS: Visit Provider Internal Medicine
DX: I70.1 Atherosclerosis of renal artery (principal)
CPT/HCPCS: 74175; Q9967

== ENCOUNTER 2023-03-20 08:19 | Outpatient (RCR) | payer OTHER, SELFPAY | END 2023-04-27 13:41 | disposition home or self-care (01) | LOC: HO.OT 08:19 | PROVIDERS: PCP Internal Medicine; Visit Provider Internal Medicine | DX: R29.898 Other symptoms and signs involving the musculoskeletal system (principal) | CPT/HCPCS: 97110; 97166 ==

== ENCOUNTER 2023-03-21 11:11 | Outpatient (RCR) | payer OTHER, SELFPAY | END 2023-05-17 11:19 | disposition home or self-care (01) | LOC: HO.PT 11:11 | PROVIDERS: PCP Internal Medicine; Visit Provider Internal Medicine | DX: R29.898 Other symptoms and signs involving the musculoskeletal system (principal) ==

== ENCOUNTER 2023-03-28 09:15 | Outpatient (REF) | payer OTHER, SELFPAY ==
[2023-03-29 14:56] LABS: H Pylori Breath Test Negative (Negative)
== END 2023-03-28 09:16 | disposition home or self-care (01) ==
LOC: HO.LNP 09:15
PROVIDERS: PCP Internal Medicine; Visit Provider Physician Assistant
DX: A04.8 Other specified bacterial intestinal infections (principal)
CPT/HCPCS: 83013

== ENCOUNTER 2023-03-29 07:15 | Outpatient (REF) | payer OTHER, SELFPAY ==
[2023-03-29 11:58] LABS: Cholesterol 178 mg/dL; HDL Cholesterol 41 mg/dL; LDL Cholesterol Calculated 79 mg/dl; Triglycerides 290 mg/dL
== END 2023-03-29 07:16 | disposition home or self-care (01) ==
LOC: HO.HMGCLDS 07:15
PROVIDERS: PCP Internal Medicine; Visit Provider Internal Medicine
DX: E78.5 Hyperlipidemia, unspecified (principal)
CPT/HCPCS: 36415; 80061

== ENCOUNTER → 2023-04-03 14:02 | Outpatient (BNVA) | payer OTHER, SELFPAY | PROVIDERS: PCP Internal Medicine; Referring Provider Internal Medicine; Visit Provider Internal Medicine ==

== ENCOUNTER 2023-04-30 11:14 | Day surgery (SDC) | payer OTHER, SELFPAY ==
[2023-04-25 19:57] VITALS: BMI 25.3
--- NOTE | 2023-04-27 13:19 | P.CONAN_ITS ---
Documented by User: Muna Sharp NP 04/27/23 13:21 HPI - Anesthesia Eval Consult details Narrative: 47yo F for Upper Endoscopy and Colonoscopy 2022 cardiac eval for htn/palps. ECHO, holter, renal US wnl. F/U with cardiology prn only Spin stim in situ PMFSH Active Problems Active Problems: All Active Problems (Updated 04/25/23 @ 19:56 by Maria Dolores Hull, RN) Peroneal nerve injury (Acute) Left arm weakness (Acute) Renal artery stenosis (Acute) Chronic GERD (Acute) Encounter for colonoscopy due to history of adenomatous colonic polyps (Acute) Left arm weakness (Acute) Upper extremity weakness (Acute) Ulnar nerve damage (Acute) H/O colonoscopy (Acute) Palpitations (Acute) Annual physical exam (Acute) Hyperlipidemia (Acute) Left leg weakness (Acute) Complex regional pain syndrome type 2 (Acute) Complex regional pain syndrome (Acute) Foot drop, left (Acute) Sacroiliitis (Acute) HTN (hypertension) (Acute) Cervical radiculopathy (Acute) Disc degeneration, lumbar (Acute) Past Medical History Medical History Annual physical exam Anxiety and depression Cervical radiculopathy Complex regional pain syndrome Complex regional pain syndrome type 2 Disc degeneration, lumbar Foot drop, left History of mammogram HTN (hypertension) Hyperlipidemia Left leg weakness Palpitations Sacroiliitis Family History Family History Father Lung cancer Smoker Mother HTN (hypertension) Diabetes mellitus Brother No problems noted. Son No problems noted. Daughter No problems noted. Family history of problems with anesthesia: No Surgical History Surgical History H/O colonoscopy Hx of appendectomy S/P breast implant, silicone S/P insertion of spinal cord stimulator History of Problems with Anesthesia: No Social History Social History Household Members Other:: 2 teenagers Housing: House Alcohol intake: current Alcohol intake frequency: a few times a month Patient Tobacco Use Status: Never used Tobacco e-Cigarette/Vaping Use: Never Used Use of substances other than those prescribed or required for medical reasons: No Are you DNR?: No Advance Directives: No Advance Directives Information Provided: Yes Advance Directives on File: No Recently lost weight without trying: No Nutrition Risks: No Nutritional Risk Patient : No Current occupational status: unemployed and disabled 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 Cognitive needs: No Hearing needs: No Vision needs: Yes Meds Allergies Allergy/AdvReac Type Severity Reaction Status Date / Time pravastatin Allergy Unknown Stomach Verified 04/03/23 14:08 Upset lisinopril AdvReac cough Verified 04/03/23 14:08 Home Medications Medication Instructions Recorded Confirmed Last Taken Type lorazepam 0.5 mg tablet 0.25 mg PO DAILY PRN Anxiety 12/14/22 04/25/23 04/27/23 History sertraline 25 mg tablet 25 mg PO BID 03/30/23 04/25/23 04/29/23 History Exam Exam Date and Time: April 27, 2023 1319 Height,Weight and Vital Signs: Height 5 ft 3 in Weight 64.864 kg Pertinent Lab Results Pertinent Lab Results: Laboratory Tests 11/30/21 12/13/22 07:55 07:17 WBC 7.2 Hgb 12.4 Hct 38.0 Plt Count 287 Sodium 139 Potassium 4.2 Chloride 104 Carbon Dioxide 26 BUN 5 L Creatinine 0.71 Narrative Narrative: EKG 12/2022 sinus rhythm at 71/Min; no significant ST-T changes and otherwise unremarkable.? Normal AR and corrected QT. ECHO 12/2022 Conclusions: - The left ventricular systolic function is normal.? The ? calculated ejection fraction is 63% by biplane method. ? - There is mild septal asymmetric hypertrophy. ? - No obvious valvular pathology seen on this study.? Holter 12/2022 conclusion: 1.? Patient was monitored for total period of 5 days and 22 hours 2. Baseline was normal sinus rhythm with average heart of 74 beats per minute 3. Very rare PACs noted 4.? No significant pauses or bradycardia noted 5.? No patient reported events Assessment and Plan Assessment Anesthesia Assessment: Chart Reviewed Final Anesthetic Review Family History of Problems with Anesthesia: No History of Problems with Anesthesia: No Documented by User: Marielle Hampton MD 04/30/23 12:28 [facility] Past Medical History Medical History Annual physical exam Anxiety and depression Cervical radiculopathy Complex regional pain syndrome Complex regional pain syndrome type 2 Disc degeneration, lumbar Foot drop, left History of mammogram HTN (hypertension) Hyperlipidemia Left leg weakness Palpitations Sacroiliitis Family History Family History Father Lung cancer Smoker Mother HTN (hypertension) Diabetes mellitus Brother No problems noted. Son No problems noted. Daughter No problems noted. Surgical History Surgical History H/O colonoscopy Hx of appendectomy S/P breast implant, silicone S/P insertion of spinal cord stimulator Social History Social History Household Members Other:: 2 teenagers Housing: House Alcohol intake: current Alcohol intake frequency: a few times a month Patient Tobacco Use Status: Never used Tobacco e-Cigarette/Vaping Use: Never Used Use of substances other than those prescribed or required for medical reasons: No Are you DNR?: No Advance Directives: No Advance Directives Information Provided: Yes Advance Directives on File: No Recently lost weight without trying: No Nutrition Risks: No Nutritional Risk Patient : No Current occupational status: unemployed and disabled 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 Cognitive needs: No Hearing needs: No Vision needs: Yes Meds Allergies Allergy/AdvReac Type Severity Reaction Status Date / Time pravastatin Allergy Unknown Stomach Verified 04/03/23 14:08 Upset lisinopril AdvReac cough Verified 04/03/23 14:08 Home Medications Medication Instructions Recorded Confirmed Last Taken Type lorazepam 0.5 mg tablet 0.25 mg PO DAILY PRN Anxiety 12/14/22 04/25/23 04/27/23 History sertraline 25 mg tablet 25 mg PO BID 03/30/23 04/25/23 04/29/23 History Exam Airway Mallampati Class: II (caps laterally) TM Dist: >3cm Neck ROM: Full Partial: Upper Heart: rrr Lungs: cta Assessment and Plan Assessment Anesthesia Assessment: Anesthesia Plan Discussed Final Anesthetic Review NPO: Yes ASA Class: III Final Preanesthetic Review: No Changes in Pt Med Stat, Meds/Allgs Chart Reviewed and Consent Obtained/Reviewed Patient Risk: Intermediate Procedure Risk: Intermediate Anesthetic Plan Anesthetic Plan: MAC: Disposition: Standard PACU
[2023-04-30 11:51] VITALS: BP 135/86; PULSE 72; RESP 20; TEMP 36.6; O2SAT 98
[2023-04-30 12:05] LABS: UPreg QC Valid YES; Urine Pregnancy NEGATIVE (NEGATIVE)
[2023-04-30] MEDS: Lactated Ringers 1,000 ML 100 ML IVCONT (12:16)
--- NOTE | 2023-04-30 12:34 | MHC.SHP ---
Pre-Procedural Eval Section A Date of Service: 04/30/23 The patient is an INPATIENT: No The History & Physical has been completed within 30 days and I have reviewed it.: No Section B Chief Complaint: Screening,GERD Relevant Family History (Specify if Yes): No Relevant Social History: None Present Medications: see Short Stay Collaborative assessment Medical History: Significant History (Complex regional pain syndrome type 2 Disc degeneration, lumbar Foot drop, left History of mammogram HTN (hypertension) Hyperlipidemia Left leg weakness Palpitations Sacroiliitis) History of Previous Operations: Relevant previous surgery/procedure and date(s) (H/O colonoscopy Hx of appendectomy S/P breast implant, silicone S/P insertion of spinal cord stimulator) Allergies: Allergies Allergy/AdvReac Type Severity Reaction Status Date / Time pravastatin Allergy Unknown Stomach Verified 04/03/23 14:08 Upset lisinopril AdvReac cough Verified 04/03/23 14:08 Review of Systems Sugical H&P ROS: Negative: Constitution, Cardiovascular, Respiratory and Gastrointestinal Exam Surgical H&P Exam: Normal: Heart, Normal: Lungs, Normal: Extremities and Normal: Abdomen Plan Diagnosis/Plan: Unchanged I have reviewed the history and physical and performed a pertinent physical examination on my patient. No changes have occurred unless specified. Time Spent With Patient Time: Total time managing care of this patient today ____ minutes.
--- NOTE | 2023-04-30 13:30 | W.PM.OPN ---
Operative Note Operative Note Date of Service: 04/30/23 Narrative: FLEXIBLE TRANSORAL UPPER GASTROINTESTINAL ENDOSCOPY WITH BIOPSIES AND COLONOSCOPY TILL CECUM WITH BIOPSIES Pre-op diagnosis: Colon cancer screening, history of colon polyps, GERD, abdominal pain Post-op diagnosis: GERD, Gastritis, colon polyp? Endoscopist:? Sandi Henry MD Anesthesia:?MAC UPPER ENDOSCOPY Consent: Indications for the procedure and potential complications of bleeding, perforation, reaction to medications and missed diagnosis were discussed with the patient and informed consent was obtained. Instrument: Olympus GIF H 190 mid size upper endoscope Monitoring: Vital signs and clinical assessment, continuous EKG monitoring, Pulse oximetry, Carbon Dioxide monitoring and blood pressure monitoring were done throughout the procedure. Procedure: The patient was placed in the left lateral decubitis position and pre-procedure medications were administered and a bite block was placed. The endoscope was inserted into the mouth and advanced under direct vision to the third part of duodenum. A careful inspection was made as the upper endoscope was withdrawn including a retroflexed examination of the proximal stomach; Findings and interventions are described below. Findings: Larynx: Normal Esophagus: GE junction at 35 cms. No esophagitis or Robison's. Stomach: Mild gastric antral erythema. Biopsies were obtained. Grade 2 flap valve on retroflexed examination of the cardia. Duodenum: Normal bulb and descending duodenum. Biopsies were obtained from 3rd part of duodenum to check for celiac sprue. Intervention: Biopsies as noted above COLONOSCOPY PROCEDURE NOTE Consent: Indications for the procedure and potential complications of bleeding, perforation, reaction to medications and missed diagnosis were discussed with the patient and informed consent was obtained. Instrument: Olympus PCF H 190 L variable stiffness pediatric colonoscope Monitoring: Vital signs and clinical assessment, intermittent blood pressure monitoring, continuous EKG monitoring, Pulse oximetry and Carbon Dioxide monitoring were done throughout the procedure. Colon withdrawl time was 18 minutes. Procedure: The patient was placed in the left lateral decubitis position and pre-procedure medications were administered. After a digital rectal examination of the ano-rectum, the video colonoscope was inserted into the rectum and advanced through the colon to the cecum. The colonoscope was slowly withdrawn in a retrograde panoramic fashion and the colon mucosa was carefully examined including a retroflexed view of the rectum. Findings and interventions are described below. Procedure Difficulty: : Without difficulty Colon was long and tortuous and there was spasm and some loop formation. Findings: Terminal Ileum: Not evaluated Cecum: Normal Ascending Colon: Normal Transverse Colon: A 6-7 mm diminutive appearing polyp - removed with a cold biopsy Descending Colon: Normal Sigmoid Colon: Normal Rectum: Normal Ano-rectum: Moderate internal hemorrhoids Colon preparation: Good Impression and Post Procedure Diagnosis: Endoscopy Findings: STOMACH: Mild antral gastritis DUODENUM: normal - biopsied to check for celiac sprue Colonoscopy Findings: One small polyps removed Plan: Await pathology results Patient has an appointment on 05/21/23 in the GI Clinic with KURT Colón. Repeat Colonoscopy interval based on path results - in 5 years if polyps are adenomatous and 10 years if polyps are hyperplastic. Above findings were reviewed with the patient and colon polyps and GERD handouts were given in the discharge area BIOPSIES SHOWED: A.? Small bowel, biopsy:? Duodenal mucosa within normal limits. B.? Stomach, antrum, biopsy:? Antral-type mucosa with moderate chronic inactive inflammation; no Helicobacter organisms seen. C.? Colon, transverse, polypectomy:? Hyperplastic mucosal polyp.
[2023-04-30 14:13] VITALS: BP 108/63; PULSE 66; RESP 16; TEMP 36.3; O2SAT 98
[2023-04-30 14:28] VITALS: BP 126/90; PULSE 72; RESP 19; TEMP 36.3; O2SAT 98
== END 2023-04-30 15:03 | disposition home or self-care (01) ==
PROVIDERS: Nurse Practitioner; PCP Internal Medicine; Visit Provider Internal Medicine Gastroenterology
PROC: (CPT 45380; principal; 2023-04-30 13:00)
DX: Z12.11 Encounter for screening for malignant neoplasm of colon (principal); K63.5 Polyp of colon; K57.30 Diverticulosis of large intestine without perforation or abscess without bleeding; K21.9 Gastro-esophageal reflux disease without esophagitis; K29.50 Unspecified chronic gastritis without bleeding; K64.8 Other hemorrhoids; I10 Essential (primary) hypertension; E78.5 Hyperlipidemia, unspecified; I70.1 Atherosclerosis of renal artery; R00.2 Palpitations; G90.50 Complex regional pain syndrome I, unspecified; Z79.899 Other long term (current) drug therapy; Z88.8 Allergy status to other drugs, medicaments and biological substances; Z96.82 Presence of neurostimulator; Z98.82 Breast implant status
CPT/HCPCS: 45380; 43239; 81025; 88305; 88342

== ENCOUNTER → 2023-05-03 08:57 | Outpatient (BNVA) | payer OTHER, SELFPAY | PROVIDERS: PCP Internal Medicine; Visit Provider Physician Assistant | DX: K21.9 Gastro-esophageal reflux disease without esophagitis (principal); K57.30 Diverticulosis of large intestine without perforation or abscess without bleeding; Z98.890 Other specified postprocedural states | CPT/HCPCS: 99212 ==

== ENCOUNTER 2023-08-01 14:16 | Outpatient (AMB) | payer OTHER, SELFPAY ==
--- NOTE | 2023-08-01 14:26 | MHC.OFFVIS ---
Intake Vital Signs 08/01/23 14:35 Height 5 ft 3 in Weight 142 lb BMI 25.2 BP 142/94 H Blood Pressure Location Rt brachial Position Sitting Respiration 18 Pulse 73 Pulse Source Pulse Oximeter Pulse Oximetry (%) 98 Oxygen Delivery Method Room Air Intake Visit Reasons: (L) Sided Extremity Pain/Lvm Allergies pravastatin Allergy (Unknown, Verified 08/01/23 14:36) Stomach Upset lisinopril Adverse Reaction (Verified 08/01/23 14:36) cough HPI HPI Comments History of Present Illness Details Winter is back in my office after 2 years of absence. She is suffering from Complex regional pain syndrome of the left lower extremity. She received [employer] SCS in the thoracic position to treat Complex regional pain syndrome on the left. She still reports some discomfort in the left lower extremity however this is not the main focus of her visit today. She reports that SCS works very well for her she enjoys stimulation. However she reports pain in the left upper extremity. She reports today pain 5/10 in the left upper extremity. She reports arm pain and hand pain. She wants me to review the MRI of the cervical spine which was performed in [place] in [place]. We will send the request for that MRI to obtain. She also had EMG at the [facility] she will fax results of EMG to us she has it available at home. She is interested in her pain on the left side hand with [employer] extension of spinal cord stimulator. If there is no red flags on MRI I will schedule her for the cervical trial however I am afraid that she needs to repeat her psychological evaluation. [facility] Medical History Annual physical exam Anxiety and depression Cervical radiculopathy Complex regional pain syndrome Complex regional pain syndrome type 2 Disc degeneration, lumbar Foot drop, left History of mammogram HTN (hypertension) Hyperlipidemia Left leg weakness Palpitations Sacroiliitis Surgical History H/O colonoscopy History of esophagogastroduodenoscopy (EGD) Hx of appendectomy S/P breast implant, silicone S/P insertion of spinal cord stimulator Family History Father Lung cancer Smoker Mother HTN (hypertension) Diabetes mellitus Brother No problems noted. Son No problems noted. Daughter No problems noted. Social History Household Members Other:: 2 teenagers Housing: House Alcohol intake: current Alcohol intake frequency: a few times a month Patient Tobacco Use Status: Never used Tobacco e-Cigarette/Vaping Use: Never Used Current occupational status: unemployed and disabled Current occupation: [employer] Cognitive needs: No Hearing needs: No Vision needs: Yes Review of Systems Const All systems reviewed & are unremarkable except as noted in HPI and below ENT Denies Normal hearing present Neuro Denies Normal hearing present, Denies Abnormal speech present and Denies confusion Psych Denies confusion Physical Exam Vital Signs: Last Vital Signs Pulse 73 08/01/23 14:35 Resp 18 08/01/23 14:35 BP 142/94 H 08/01/23 14:35 Pulse Ox 98 08/01/23 14:35 Oxygen Delivery Method Room Air 08/01/23 14:35 BMI result Body Mass Index 25.2 Const General: cooperative, healthy appearing, no acute distress, alert and well groomed; No confusion Orientation/consciousness: patient oriented x3 and No confusion Limitations: other limitations (AFO brace of LLE) HEENT Head: Yes normocephalic and Yes atraumatic Ears: hearing grossly normal bilaterally Eyes General: appearance normal, both eyes and all related structures Eyelids: Yes eyelids normal Pupils: Equal, round and reactive pupils present EOM: EOMs intact bilaterally Neck Neck: Yes normal visual inspection and Yes no JVD Resp Effort & Inspection: normal respiratory effort, able to speak in complete sentences and no audible wheezes Cardio Jugular venous distension: no JVD Back/Spine/Pelvis Other: site c/d/i Neuro General: patient oriented x3, gait normal, moves all extremities and No confusion Cranial nerves: Yes Equal, round and reactive pupils present and No Normal hearing present Speech: No Abnormal speech present Psych Appearance: grossly normal Mental Status: mental status grossly normal Speech and movement: Normal speech and movement present Affect: normal affect Attitude: cooperative Thought process: Normal thought process present Thought content: Normal thought content present Insight: Good insight present (Psych) Judgement: Good judgement present (Psych) Assessment & Plan Assessment & Plan (1) Peroneal nerve injury: Code(s): S84.10XA - Injury of peroneal nerve at lower leg level, unspecified leg, initial encounter Qualifiers: Encounter type: sequela Laterality: left Qualified Code(s): S84.12XS - Injury of peroneal nerve at lower leg level, left leg, sequela (2) Disc degeneration, lumbar: Code(s): M51.36 - Other intervertebral disc degeneration, lumbar region (3) Complex regional pain syndrome type 2: Code(s): G56.40 - Causalgia of unspecified upper limb (4) Foot drop, left: Comment: Weakness and foot drop since fall April 2020. Pain from low back all the way down lower extremity to foot Code(s): M21.372 - Foot drop, left foot Plan She was doing well after SCS implant Reported good pain relieve on the left lower extremity. Now complains on pain in the left upper extremity. She wants the extension of the [employer] SCS system in the neck. We need to obtain EMG of the left upper extremity, she will fax the EMG report to us. We also will obtain MRI of the cervical spine she received in [facility]. In the order to go for SCS extension she needs to go for psych evaluation. Will schedule her for yet another psych evaluation. Coding Level of Care Code Est Pt Level 4 (02401) Diagnoses Injury of left peroneal nerve, sequela S84.12XS Encounter type: sequela Laterality: left Disc degeneration, lumbar M51.36 Complex regional pain syndrome type 2 G56.40 Foot drop, left M21.372
[2023-08-01 14:35] VITALS: BP 142/94; PULSE 73; RESP 18; O2SAT 98; BMI 25.2
== END 2023-08-01 14:58 | disposition home or self-care (01) ==
PROVIDERS: PCP Internal Medicine; Visit Provider Anesthesiology
DX: S84.1 Injury of peroneal nerve at lower leg level (principal); M51.36 Other intervertebral disc degeneration, lumbar region; G56.42 Causalgia of left upper limb; M21.372 Foot drop, left foot
CPT/HCPCS: 99214

== ENCOUNTER → 2023-08-01 14:16 | Outpatient (BNVA) | payer OTHER, SELFPAY | PROVIDERS: PCP Internal Medicine; Visit Provider Anesthesiology | DX: G56.40 Causalgia of unspecified upper limb (principal); M51.36 Other intervertebral disc degeneration, lumbar region; M21.372 Foot drop, left foot; S84.12XD Injury of peroneal nerve at lower leg level, left leg, subsequent encounter | CPT/HCPCS: 99212 ==

== ENCOUNTER 2023-09-28 08:45 | Outpatient (REF) | payer OTHER, SELFPAY ==
[2023-09-28 11:28] LABS: MANUAL DIFF FLAG NO
[2023-09-28 11:35] LABS: Basophils Percent Auto 0.2 % (0-2); Eosinophils Absolute Auto 0.5 X10*3/uL (0.0-0.4); Eosinophils Percent Auto 5.3 % (0-4); Hematocrit 40.1 % (37.0-47.0); Hemoglobin 13.2 g/dl (12.0-16.0); Imm Gran Abs Auto 0.03 X10*3/uL (0.00-0.03); Imm Gran Pct Auto 0.3 % (0.0-0.4); Lymphocytes Absolute Auto 2.2 X10*3/uL (1.2-4.9); Lymphocytes Percent Auto 24.9 % (20-40); Mean Corpuscular HGB Conc 32.9 g/dl (31.0-35.0); Mean Corpuscular Hemoglobin 28.6 pg (27.0-33.0); Mean Platelet Volume 10.3 fL (9.4-12.3); Monocytes Absolute Auto 0.7 X10*3/uL (0.1-1.2); Monocytes Percent Auto 7.4 % (2-11); Neutrophils Absolute Auto 5.5 x10*3/uL (2.0-8.3); Neutrophils Percent Auto 61.9 % (45-73); Platelet Count 271 X10*3/uL (160-400); Red Blood Count 4.61 X10*6/uL (4.20-5.50); Red Cell Distribution Width 13.5 % (11.0-16.0); White Blood Count 8.9 X10*3/uL (4.8-10.8)
[2023-09-28 11:53] LABS: Alanine Aminotransferase 13 U/L (0-31); Albumin Level 4.4 g/dL (3.5-5.0); Alkaline Phosphatase 53 U/L (39-117); Anion Gap 10 (12-20); Aspartate Amino Transferase 15 U/L (5-31); Bilirubin Total 0.6 mg/dL (0.0-1.0); Blood Urea Nitrogen 6 mg/dL (9-16); Calcium 9.3 mg/dL (8.4-10.2); Carbon Dioxide 24 mmol/L (22-29); Chloride 108 mmol/L (96-108); Cholesterol 180 mg/dL (<200); Estimated Glomerular Filt Rate > 60; Glucose Fasting 90 mg/dL (60-99); HDL Cholesterol 39 mg/dL (>40); LDL Cholesterol Calculated 91 mg/dL (<100); Sodium 138 mmol/L (135-145); Total Protein 7.8 g/dL (6.5-8.0); Triglycerides 251 mg/dL (<150)
== END 2023-09-28 08:46 | disposition home or self-care (01) ==
LOC: HO.HMGCLDS 08:45
PROVIDERS: PCP Internal Medicine; Visit Provider Internal Medicine
DX: E78.5 Hyperlipidemia, unspecified (principal); I10 Essential (primary) hypertension
CPT/HCPCS: 36415; 80053; 80061; 85025

== ENCOUNTER 2023-10-01 09:54 | Outpatient (AMB) | payer OTHER, SELFPAY ==
[2023-10-01 09:57] VITALS: BP 136/80; PULSE 78; O2SAT 98; BMI 25.3
--- NOTE | 2023-10-01 09:57 | MHC.PC.OV ---
Vital Signs 10/01/23 09:57 Height 5 ft 3 in Weight 143 lb BMI 25.3 BP 136/80 Blood Pressure Location Lt brachial Position Sitting Pulse 78 Pulse Source Pulse Oximeter Pulse Oximetry (%) 98 Oxygen Delivery Method Room Air Intake Visit Reasons: 6m follow up Intake Note: Pt is here today for 6 months follow up visit. Allergies pravastatin Allergy (Unknown, Verified 10/01/23 09:59) Stomach Upset lisinopril Adverse Reaction (Verified 10/01/23 09:59) cough Medication List - Last Reconciled 10/01/23 by Joseline Hernandez MD amlodipine 5 mg PO DAILY gabapentin 300 mg PO TID 30 days lorazepam 0.25 mg PO DAILY PRN metoprolol tartrate 25 mg PO BID omeprazole 20 mg PO DAILY rosuvastatin 10 mg PO DAILY sertraline 25 mg PO BID triamcinolone acetonide 0.025% 1 appl topical DAILY Tobacco use date assessed: 10/01/23 Dental Screening Dental Screen Date: 10/01/23 Did you have a dental visit in the last 12 months?: Yes Did you have a dental problem in the last 6 months where you did not have access to dental care?: No Was dental information given to patient?: Patient has dentist HPI 6m follow up HPI Details Pt presents for f/u HTN and hyperlipid. Pt continue to take Gabapentin for chronic LLE pain from compex regional pain syndrome and f/u with neurology [facility] Medical History (Updated 10/01/23 @ 10:37 by Joseline Hernandez MD) Anxiety and depression Palpitations Annual physical exam Left leg weakness Complex regional pain syndrome type 2 Complex regional pain syndrome Foot drop, left Sacroiliitis Cervical radiculopathy History of mammogram Hyperlipidemia HTN (hypertension) Disc degeneration, lumbar Surgical History (Updated 10/01/23 @ 10:26 by Joseline Hernandez MD) History of esophagogastroduodenoscopy (EGD) S/P insertion of spinal cord stimulator Hx of appendectomy S/P breast implant, silicone H/O colonoscopy Family History Father Lung cancer Smoker Mother HTN (hypertension) Diabetes mellitus Brother No problems noted. Son No problems noted. Daughter No problems noted. Social History Household Members Other:: 2 teenagers Housing: House Alcohol intake: current Alcohol intake frequency: a few times a month Patient Tobacco Use Status: Never used Tobacco e-Cigarette/Vaping Use: Never Used Current occupational status: unemployed and disabled Current occupation: [employer] Cognitive needs: No Hearing needs: No Vision needs: Yes Questionnaire Thrive Questionnaire Date Thrive assessed: 12/14/22 MOUNA-7 AMB Questionnaire MOUNA-7 Date MOUNA - 7 assessed: 12/14/22 Source: Developed by Drs. Joe Wheeler, Georgiana Aceves, Ricco Amaro and colleagues, with an educational carlitos from [employer]. Review of Systems Const All systems reviewed & are unremarkable except as noted in HPI and below Reports no additional complaints Eyes Reports no additional complaints ENT Reports no additional complaints Card Reports no additional complaints Resp Reports no additional complaints GI Reports no additional complaints Reports no additional complaints Physical exam (Primary Care) Vital Signs: Last Vital Signs Pulse 78 10/01/23 09:57 BP 136/80 10/01/23 09:57 Pulse Ox 98 10/01/23 09:57 Oxygen Delivery Method Room Air 10/01/23 09:57 BMI result Body Mass Index 25.3 Tobacco/Smoking Status: Tobacco use Status Tobacco use date assessed 10/01/23 10/01/23 10:01 Patient Tobacco Use Status Never used Tobacco 10/01/23 10:01 e-Cigarette/Vaping Use Never Used 10/01/23 10:01 Thrive Assessment: Date of Thrive Assessment Date Thrive assessed 12/14/22 10/01/23 10:01 Const General: no acute distress HENMT Head: Yes normal to inspection Ears: hearing grossly normal bilaterally Face and sinus: Yes normal facial exam Eyes General: appearance normal, both eyes and all related structures Neck Neck: Yes no lymphadenopathy and Yes supple Resp Effort & Inspection: normal respiratory effort Auscultation: clear to auscultation bilaterally Cardio Rhythm: regular rhythm Heart sounds: S1 normal heart sound present and S2 normal heart sound present GI Inspection: Yes normal to inspection Palpation (GI): Soft to palpation Percussion: Yes normal to percussion Auscultation: normal bowel sounds Assessment and Plan Assessment & Plan (1) Hyperlipidemia: Code(s): E78.5 - Hyperlipidemia, unspecified Plan: cont Crestor, restart Fish oil and follow low saturated fats diet (2) Complex regional pain syndrome type 2: Comment: f/u with neurology, controlled on Gabapentin Code(s): G56.40 - Causalgia of unspecified upper limb (3) HTN (hypertension): Comment: BP goal < 130/80 Code(s): I10 - Essential (primary) hypertension Plan: increase Amlodipine to 5 mg, f/u 2 months Medications: New amlodipine 5 mg PO DAILY 90 tabs 1RF triamcinolone acetonide 0.025% 1 appl topical DAILY 454 grams 1RF Discontinued amlodipine Discontinued Reason: Doctor's Order 2.5 mg PO DAILY 90 tabs 3RF Coding Level of Care Code Est Pt Level 4 (05702) Diagnoses Hyperlipidemia E78.5 Complex regional pain syndrome type 2 G56.40 HTN (hypertension) I10
== END 2023-10-01 10:37 | disposition home or self-care (01) ==
PROVIDERS: Visit Provider Internal Medicine
DX: E78.5 Hyperlipidemia, unspecified (principal); G56.40 Causalgia of unspecified upper limb; I10 Essential (primary) hypertension
CPT/HCPCS: 99214

== ENCOUNTER 2023-12-18 08:51 | Outpatient (REF) | payer OTHER, SELFPAY ==
[2023-12-18 11:12] LABS: MANUAL DIFF FLAG NO
[2023-12-18 11:33] LABS: Basophils Absolute Auto 0.1 X10*3/uL (0.0-0.2); Basophils Percent Auto 0.6 % (0-2); Eosinophils Absolute Auto 0.5 X10*3/uL (0.0-0.4); Eosinophils Percent Auto 5.3 % (0-4); Hematocrit 40.6 % (37.0-47.0); Hemoglobin 13.5 g/dl (12.0-16.0); Imm Gran Abs Auto 0.04 X10*3/uL (0.00-0.03); Imm Gran Pct Auto 0.5 % (0.0-0.4); Lymphocytes Absolute Auto 2.1 X10*3/uL (1.2-4.9); Lymphocytes Percent Auto 23.5 % (20-40); Mean Corpuscular HGB Conc 33.3 g/dl (31.0-35.0); Mean Corpuscular Hemoglobin 29.4 pg (27.0-33.0); Mean Corpuscular Volume 88.5 fL (80.0-98.0); Mean Platelet Volume 10.3 fL (9.4-12.3); Monocytes Absolute Auto 0.7 X10*3/uL (0.1-1.2); Monocytes Percent Auto 7.7 % (2-11); Neutrophils Absolute Auto 5.5 x10*3/uL (2.0-8.3); Neutrophils Percent Auto 62.4 % (45-73); Platelet Count 293 X10*3/uL (160-400); Red Blood Count 4.59 X10*6/uL (4.20-5.50); Red Cell Distribution Width 13.4 % (11.0-16.0); White Blood Count 8.8 X10*3/uL (4.8-10.8)
[2023-12-18 11:59] LABS: Alanine Aminotransferase 14 U/L (0-31); Albumin Level 4.4 g/dL (3.5-5.0); Alkaline Phosphatase 61 U/L (39-117); Anion Gap 12 (12-20); Aspartate Amino Transferase 15 U/L (5-31); Bilirubin Total 0.5 mg/dL (0.0-1.0); Blood Urea Nitrogen 7 mg/dL (9-16); Calcium 9.5 mg/dL (8.4-10.2); Carbon Dioxide 24 mmol/L (22-29); Chloride 107 mmol/L (96-108); Cholesterol 181 mg/dL (<200); Estimated Glomerular Filt Rate > 60; Glucose Fasting 96 mg/dL (60-99); HDL Cholesterol 43 mg/dL (>40); LDL Cholesterol Calculated 92 mg/dL (<100); Potassium 4.1 mmol/L (3.3-5.1); Sodium 139 mmol/L (135-145); Triglycerides 234 mg/dL (<150)
[2023-12-18 13:23] LABS: TSH reflex Free T4 0.74 uIU/mL (0.32-4.0)
[2023-12-18 13:35] LABS: Appearance Urine Turbid; Color Urine Yellow; Glucose Urine UA Negative (Negative); Leukocyte Esterase Urine Negative (Negative); Nitrite Urine Negative (Negative); Specific Gravity - Urine 1.025 (1.005-1.025); Urine Blood Negative (Negative); Urine Ketones Negative (Negative); Urine Protein Negative (Neg-Trace)
[2023-12-18 13:46] LABS: Bacteria Urine 1+ (None Seen); Hyaline Casts Urine 0-2 /LPF (0-2); RBC Urine 0-2 /HPF (0-2); WBC Urine 0-5 /HPF (0-5)
== END 2023-12-18 08:52 | disposition home or self-care (01) ==
LOC: HO.HMGCLDS 08:51
PROVIDERS: PCP Internal Medicine; Visit Provider Internal Medicine
DX: Z00.00 Encounter for general adult medical examination without abnormal findings (principal); Z78.0 Asymptomatic menopausal state; I10 Essential (primary) hypertension
CPT/HCPCS: 36415; 80053; 80061; 81001; 82306; 84443; 85025

== ENCOUNTER 2024-04-04 09:18 | Outpatient (AMB) | payer OTHER, SELFPAY ==
--- NOTE | 2024-04-04 09:20 | MHC.PC.OV ---
Vital Signs 04/04/24 09:26 Height 5 ft 3 in Weight 148 lb BMI 26.2 BP 118/74 Blood Pressure Location Lt brachial Position Sitting Pulse 72 Pulse Source Pulse Oximeter Pulse Oximetry (%) 98 Oxygen Delivery Method Room Air Intake Visit Reasons: Annual PE Intake Note: Pt is here today for PE. Allergies pravastatin Allergy (Unknown, Verified 04/04/24 09:28) Stomach Upset lisinopril Adverse Reaction (Verified 04/04/24 09:28) cough Medication List - Last Reconciled 04/04/24 by Joseline Hernandez MD amlodipine 5 mg PO DAILY gabapentin 300 mg PO TID 30 days lorazepam 0.25 mg PO DAILY PRN metoprolol tartrate 25 mg PO BID omeprazole 20 mg PO DAILY rosuvastatin 10 mg PO DAILY sertraline 25 mg PO BID triamcinolone acetonide 0.025% 1 appl topical DAILY Tobacco use date assessed: 04/04/24 Dental Screening Dental Screen Date: 04/04/24 Did you have a dental visit in the last 12 months?: Yes Did you have a dental problem in the last 6 months where you did not have access to dental care?: No Was dental information given to patient?: Patient has dentist HPI Annual PE HPI Details Patient presents for a physical [facility] Medical History (Updated 04/04/24 @ 10:05 by Joseline Hernandez MD) Anxiety and depression Palpitations Annual physical exam Left leg weakness Complex regional pain syndrome type 2 Complex regional pain syndrome Foot drop, left Cervical radiculopathy History of mammogram Hyperlipidemia HTN (hypertension) Disc degeneration, lumbar Surgical History (Updated 04/04/24 @ 09:54 by Joseline Hernandez MD) History of esophagogastroduodenoscopy (EGD) S/P insertion of spinal cord stimulator Hx of appendectomy S/P breast implant, silicone H/O colonoscopy Family History Father Lung cancer Smoker Mother HTN (hypertension) Diabetes mellitus Brother No problems noted. Son No problems noted. Daughter No problems noted. Social History Household Members Other:: 2 teenagers Housing: House Alcohol intake: current Alcohol intake frequency: a few times a month Comment: LEFT FOOT DROP, IMPLANTED STIMULATOR Patient Tobacco Use Status: Never used Tobacco e-Cigarette/Vaping Use: Never Used service: No Current occupational status: unemployed and disabled Current occupation: [employer] Cognitive needs: No Hearing needs: No Vision needs: Yes Questionnaire Thrive Questionnaire Date Thrive assessed: 12/14/22 AUDIT C Alcohol Use Questionnaire (AUDIT-C) 1. How often do you have a drink containing alcohol?: Monthly or less 2. How many drinks containing alcohol do you have on a typical day when you are drinking?: 1 or 2 3. How often do you have six or more drinks on one occasion?: Never Total Score: 1 MOUNA-7 AMB Questionnaire MOUNA-7 Date MOUNA - 7 assessed: 12/14/22 Source: Developed by Drs. Joe Wheeler, Georgiana Aceves, Ricco Amaro and colleagues, with an educational carlitos from [employer]. Review of Systems Const All systems reviewed & are unremarkable except as noted in HPI and below Reports no additional complaints Eyes Reports no additional complaints ENT Reports no additional complaints Card Reports no additional complaints Resp Reports no additional complaints Reports no additional complaints Physical exam (Primary Care) Vital Signs: Last Vital Signs Pulse 72 04/04/24 09:26 BP 118/74 04/04/24 09:26 Pulse Ox 98 04/04/24 09:26 Oxygen Delivery Method Room Air 04/04/24 09:26 BMI result Body Mass Index 26.2 Tobacco/Smoking Status: Tobacco use Status Tobacco use date assessed 04/04/24 04/04/24 09:30 Patient Tobacco Use Status Never used Tobacco 04/04/24 09:22 e-Cigarette/Vaping Use Never Used 04/04/24 09:22 Thrive Assessment: Date of Thrive Assessment Date Thrive assessed 12/14/22 04/04/24 09:22 Const General: no acute distress HENMT Head: Yes normal to inspection Ears: hearing grossly normal bilaterally Throat: Yes posterior oropharynx normal Eyes General: appearance normal, both eyes and all related structures Neck Neck: Yes no lymphadenopathy and Yes supple Resp Effort & Inspection: normal respiratory effort Auscultation: clear to auscultation bilaterally Cardio Rhythm: regular rhythm Heart sounds: S1 normal heart sound present and S2 normal heart sound present GI Inspection: Yes normal to inspection Palpation (GI): Soft to palpation Percussion: Yes normal to percussion Auscultation: normal bowel sounds Assessment and Plan Assessment & Plan (1) H/O colonoscopy: Comment: 02/2018 1 polyp serrated polyp repeat 05/2023 Dr. Cruz, recheck in 5 years Code(s): Z98.890 - Other specified postprocedural states (2) Annual physical exam: Code(s): Z00.00 - Encounter for general adult medical examination without abnormal findings Plan: Well-balanced diet regular physical activity discussed with the patient. She is up-to-date with the mammogram and Pap smear by sales counselor (3) Hyperlipidemia: Code(s): E78.5 - Hyperlipidemia, unspecified Plan: Continue statin, low saturated fats and low simple carbohydrates diet discussed with the patient. she was advised to increase fish oil supplement to 2 capsules a day and will check lipid profile in 6 months (4) Complex regional pain syndrome type 2: Comment: f/u with neurology, controlled on Gabapentin Code(s): G56.40 - Causalgia of unspecified upper limb Plan: Continue gabapentin (5) HTN (hypertension): Comment: BP goal < 130/80 Code(s): I10 - Essential (primary) hypertension Plan: Continue current medications follow-up in 6 months Orders: Orders Lipid Panel 6 Months E78.5 - Hyperlipidemia, unspecified, Z00.00 - Encounter for general adult medical examination without abnormal findings Comprehensive [place]. Panel Fast 6 Months E78.5 - Hyperlipidemia, unspecified, Z00.00 - Encounter for general adult medical examination without abnormal findings Coding Level of Care Code Est Pt Prev Care 40-64y(27839) Diagnoses H/O colonoscopy Z98.890 Annual physical exam Z00.00 Hyperlipidemia E78.5 Complex regional pain syndrome type 2 G56.40 HTN (hypertension) I10
[2024-04-04 09:26] VITALS: BP 118/74; PULSE 72; O2SAT 98; BMI 26.2
== END 2024-04-04 10:08 | disposition home or self-care (01) ==
PROVIDERS: PCP Internal Medicine; Visit Provider Internal Medicine
DX: Z98.890 Other specified postprocedural states (principal); Z00.00 Encounter for general adult medical examination without abnormal findings; E78.5 Hyperlipidemia, unspecified; G56.40 Causalgia of unspecified upper limb; I10 Essential (primary) hypertension
CPT/HCPCS: 99396

== ENCOUNTER 2024-08-18 09:02 | Outpatient (REF) | payer OTHER, SELFPAY ==
--- NOTE | ~2024-08-18 | XR_ITS ---
EXAMINATION: XR KNEE LEFT 3 VIEWS CLINICAL INFORMATION: Unilateral primary osteoarthritis, left knee M17.12. COMPARISON: MR Knee without contrast 06/29/2020 TECHNIQUE: Three views of the left knee. FINDINGS: No fracture or joint effusion. Alignment is anatomic. Mild medial compartment joint space narrowing No abnormal soft tissue calcification. XR/XR knee LT 3V IMPRESSION: Mild degenerative disease of the left knee. Electronically signed by: Nataly Che MD 10/22/2024 04:27 PM EST
== END 2024-08-18 09:03 | disposition home or self-care (01) ==
LOC: HO.XRAY 09:02
PROVIDERS: PCP Internal Medicine; Visit Provider Anesthesiology
DX: G56.40 Causalgia of unspecified upper limb (principal); M17.12 Unilateral primary osteoarthritis, left knee; S84.10XD Injury of peroneal nerve at lower leg level, unspecified leg, subsequent encounter; M51.360 Other intervertebral disc degeneration, lumbar region with discogenic back pain only; M21.372 Foot drop, left foot; Z96.82 Presence of neurostimulator
CPT/HCPCS: 73562; 99212

== ENCOUNTER 2024-08-18 09:02 | Outpatient (AMB) | payer OTHER, SELFPAY ==
--- NOTE | 2024-08-18 09:03 | MHC.OFFVIS ---
Vital Signs 08/18/24 09:07 Height 5 ft 3 in Weight 145 lb BMI 25.7 BP 122/78 Blood Pressure Location Lt brachial Position Sitting Respiration 14 Pulse 91 Pulse Source Pulse Oximeter Pulse Oximetry (%) 97 Oxygen Delivery Method Room Air Intake Visit Reasons: Medication Review Intake Note: Patient comes in for medication review. Reports pain 6/10. Allergies pravastatin Allergy (Unknown, Verified 08/18/24 09:07) Stomach Upset lisinopril Adverse Reaction (Verified 08/18/24 09:07) cough HPI Comments Details: Winter is back in my office after 1 year of absence. She complains on pain in the left knee and weakness in the left upper extremity. She reported that she had an MRI of the cervical spine she stated today that she can not provide the report of that MRI for me. We decided that I will send her for the left knee x-ray and if her left knee has signs of arthritis we can provide injection in her left knee. Her spinal cord stimulator is working well and covering her pain in mostly left lower extremity. She is suffering from Complex regional pain syndrome of the left lower extremity. She received [employer] SCS in the thoracic position to treat Complex regional pain syndrome on the left. She still reports some discomfort in the left lower extremity however this is not the main focus of her visit today. She reports that SCS works very well for her she enjoys stimulation. However she reports pain in the left upper extremity. She reports today pain 5/10 in the left upper extremity. She reports arm pain and hand pain. She wants me to review the MRI of the cervical spine which was performed in [facility] in [place]. We will send the request for that MRI to obtain. She also had EMG at the [facility] she will fax results of EMG to us she has it available at home. She is interested in her pain on the left side hand with [employer] extension of spinal cord stimulator. If there is no red flags on MRI I will schedule her for the cervical trial however I am afraid that she needs to repeat her psychological evaluation. [facility] Medical History (Updated 08/18/24 @ 09:33 by Sergei Russell MD) Anxiety and depression Palpitations Annual physical exam Left leg weakness Complex regional pain syndrome type 2 Complex regional pain syndrome Foot drop, left Cervical radiculopathy History of mammogram Hyperlipidemia HTN (hypertension) Disc degeneration, lumbar Surgical History (Updated 04/04/24 @ 09:54 by Joseline Hernandez MD) History of esophagogastroduodenoscopy (EGD) S/P insertion of spinal cord stimulator Hx of appendectomy S/P breast implant, silicone H/O colonoscopy Family History Father Lung cancer Smoker Mother HTN (hypertension) Diabetes mellitus Brother No problems noted. Son No problems noted. Daughter No problems noted. 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 Cognitive needs: No Hearing needs: No Vision needs: Yes Review of Systems Const All systems reviewed & are unremarkable except as noted in HPI and below ENT Denies Normal hearing present Neuro Denies Normal hearing present, Denies Abnormal speech present and Denies confusion Psych Denies confusion Physical Exam Vital Signs: Last Vital Signs Pulse 91 08/18/24 09:07 Resp 14 08/18/24 09:07 BP 122/78 08/18/24 09:07 Pulse Ox 97 08/18/24 09:07 Oxygen Delivery Method Room Air 08/18/24 09:07 BMI result Body Mass Index 25.7 Const General: cooperative, healthy appearing, no acute distress, alert and well groomed; No confusion Orientation/consciousness: patient oriented x3 and No confusion Limitations: other limitations (AFO brace of LLE) HEENT Head: Yes normocephalic and Yes atraumatic Ears: hearing grossly normal bilaterally Eyes General: appearance normal, both eyes and all related structures Eyelids: Yes eyelids normal Pupils: Equal, round and reactive pupils present EOM: EOMs intact bilaterally Neck Neck: Yes normal visual inspection and Yes no JVD Resp Effort & Inspection: normal respiratory effort, able to speak in complete sentences and no audible wheezes Cardio Jugular venous distension: no JVD Back/Spine/Pelvis Other: site c/d/i Neuro General: patient oriented x3, gait normal, moves all extremities and No confusion Cranial nerves: Yes Equal, round and reactive pupils present and No Normal hearing present Speech: No Abnormal speech present Psych Appearance: grossly normal Mental Status: mental status grossly normal Speech and movement: Normal speech and movement present Affect: normal affect Attitude: cooperative Thought process: Normal thought process present Thought content: Normal thought content present Insight: Good insight present (Psych) Judgement: Good judgement present (Psych) Assessment & Plan Assessment & Plan (1) Osteoarthritis of left knee: Code(s): M17.12 - Unilateral primary osteoarthritis, left knee Category: Medical (2) Peroneal nerve injury: Code(s): S84.10XA - Injury of peroneal nerve at lower leg level, unspecified leg, initial encounter Category: Medical Qualifiers: Encounter type: sequela Laterality: left Qualified Code(s): S84.12XS - Injury of peroneal nerve at lower leg level, left leg, sequela (3) Disc degeneration, lumbar: Code(s): M51.36 - Other intervertebral disc degeneration, lumbar region Category: Medical (4) Complex regional pain syndrome type 2: Comment: f/u with neurology, controlled on Gabapentin Code(s): G56.40 - Causalgia of unspecified upper limb Category: Medical (5) Foot drop, left: Comment: Weakness and foot drop since fallApril 2020. Pain from low back all the way down lower extremity to foot Code(s): M21.372 - Foot drop, left foot Category: Medical Plan She was doing well after SCS implant She wants to discuss stability of treatment of her left upper extremity weakness and pain. She wants me to refill her gabapentin. I did refill it as below. I also send her for the x-ray of the knee to rule out or diagnose her with arthritis of the left knee. If the arthritis is significant I can help her with injecting her knee with steroids. I will schedule her for the appointment in 3 weeks. Orders: Orders XR knee LT 3V Today M17.12 - Unilateral primary osteoarthritis, left knee Medications: Refilled gabapentin 300 mg PO TID 90 caps 11RF 30 days Coding Level of Care Code Est Pt Level 3 (32113) Diagnoses Osteoarthritis of left knee M17.12 Injury of left peroneal nerve, sequela S84.12XS Encounter type: sequela Laterality: left Disc degeneration, lumbar M51.36 Complex regional pain syndrome type 2 G56.40 Foot drop, left M21.372
[2024-08-18 09:07] VITALS: BP 122/78; PULSE 91; RESP 14; O2SAT 97; BMI 25.7
== END 2024-08-18 09:33 | disposition home or self-care (01) ==
PROVIDERS: PCP Internal Medicine; Visit Provider Anesthesiology
DX: M17.12 Unilateral primary osteoarthritis, left knee (principal); S84.1 Injury of peroneal nerve at lower leg level; M51.360 Other intervertebral disc degeneration, lumbar region with discogenic back pain only; G56.40 Causalgia of unspecified upper limb; M21.372 Foot drop, left foot
CPT/HCPCS: 99213

== ENCOUNTER 2024-09-08 08:33 | Outpatient (AMB) | payer OTHER, SELFPAY ==
--- NOTE | 2024-09-08 08:35 | MHC.OFFVIS ---
Vital Signs 09/08/24 08:38 Height 5 ft 3 in Weight 145 lb 2 oz BMI 25.7 BP 130/80 Blood Pressure Location Rt brachial Position Sitting Pulse 84 Pulse Source Pulse Oximeter Pulse Oximetry (%) 99 Oxygen Delivery Method Room Air Intake Visit Reasons: 3 Week Follow Up Intake Note: Pain today 6/10 Public Relations Associate Required: No Accompanied by: self Allergies pravastatin Allergy (Unknown, Verified 09/08/24 08:39) Stomach Upset lisinopril Adverse Reaction (Verified 09/08/24 08:39) cough HPI Comments Details: Winter is back in my office after the x-ray of the knee was performed. X-rays not read by radiology yet however I do not see significant features of arthritis on the image. The only problem I could perceive probably is patellofemoral insufficiency of the left knee. I will send her for physical therapy she wants to go to the place near her household so I will give her a new order. Her pain and numbness in the left upper extremity continues to progress. Now she agrees with me that she needs to see a neurosurgeon. I will schedule her for appointment with neurosurgeon and I will schedule her for the MRI of the cervical spine in [facility] so the fresh MRI will be ready close with the time of the appointment with neurosurgery. If there is no neurosurgical indications to perform the surgery on her neck extension of the spinal cord stimulator [employer] could be performed with position of the leads in the cervical epidural space. We would need to do a trial, before the trial she would need to go for yet another psychological evaluation. Her spinal cord stimulator is working well and covering her pain in mostly left lower extremity. She is suffering from Complex regional pain syndrome of the left lower extremity. She received [employer] SCS in the thoracic position to treat Complex regional pain syndrome on the left. She still reports some discomfort in the left lower extremity however this is not the main focus of her visit today. She reports that SCS works very well for her she enjoys stimulation. However she reports pain in the left upper extremity. She reports today pain 5/10 in the left upper extremity. She reports arm pain and hand pain. She wants me to review the MRI of the cervical spine which was performed in [place] in [place]. We will send the request for that MRI to obtain. She also had EMG at the [facility] she will fax results of EMG to us she has it available at home. She is interested in her pain on the left side hand with [employer] extension of spinal cord stimulator. If there is no red flags on MRI I will schedule her for the cervical trial however I am afraid that she needs to repeat her psychological evaluation. [facility] Medical History (Updated 09/08/24 @ 09:08 by Sergei Russell MD) Anxiety and depression Palpitations Annual physical exam Left leg weakness Complex regional pain syndrome type 2 Complex regional pain syndrome Foot drop, left Cervical radiculopathy History of mammogram Hyperlipidemia HTN (hypertension) Disc degeneration, lumbar Surgical History (Updated 04/04/24 @ 09:54 by Joseline Hernandez MD) History of esophagogastroduodenoscopy (EGD) S/P insertion of spinal cord stimulator Hx of appendectomy S/P breast implant, silicone H/O colonoscopy Family History Father Lung cancer Smoker Mother HTN (hypertension) Diabetes mellitus Brother No problems noted. Son No problems noted. Daughter No problems noted. 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 Cognitive needs: No Hearing needs: No Vision needs: Yes Review of Systems Const All systems reviewed & are unremarkable except as noted in HPI and below ENT Denies Normal hearing present Neuro Denies Normal hearing present, Denies Abnormal speech present and Denies confusion Psych Denies confusion Physical Exam Vital Signs: Last Vital Signs Pulse 84 09/08/24 08:38 BP 130/80 09/08/24 08:38 Pulse Ox 99 09/08/24 08:38 Oxygen Delivery Method Room Air 09/08/24 08:38 BMI result Body Mass Index 25.7 Const General: cooperative, healthy appearing, no acute distress, alert and well groomed; No confusion Orientation/consciousness: patient oriented x3 and No confusion Limitations: other limitations (AFO brace of LLE) HEENT Head: Yes normocephalic and Yes atraumatic Ears: hearing grossly normal bilaterally Eyes General: appearance normal, both eyes and all related structures Eyelids: Yes eyelids normal Pupils: Equal, round and reactive pupils present EOM: EOMs intact bilaterally Neck Other: Objective weakness of the left upper extremity, objective weakness of the left 5th and 4th fingers the most. Reports numbness in the projection of the ulnar/medial side of the left hand and left forearm. Resp Effort & Inspection: normal respiratory effort, able to speak in complete sentences and no audible wheezes Cardio Jugular venous distension: no JVD Back/Spine/Pelvis Other: site c/d/i Neuro General: patient oriented x3, gait normal, moves all extremities and No confusion Cranial nerves: Yes Equal, round and reactive pupils present and No Normal hearing present Speech: No Abnormal speech present Extrem Other: Normal range of motion of the left knee, no crepitus, no signs of the knee instability. Psych Appearance: grossly normal Mental Status: mental status grossly normal Speech and movement: Normal speech and movement present Affect: normal affect Attitude: cooperative Thought process: Normal thought process present Thought content: Normal thought content present Insight: Good insight present (Psych) Judgement: Good judgement present (Psych) Assessment & Plan Assessment & Plan (1) Patellofemoral dysfunction: Code(s): M25.869 - Other specified joint disorders, unspecified knee Category: Medical (2) Upper extremity weakness: Code(s): R29.898 - Other symptoms and signs involving the musculoskeletal system Category: Medical (3) Spondylosis of cervical spine: Code(s): M47.812 - Spondylosis without myelopathy or radiculopathy, cervical region Category: Medical (4) Degeneration, intervertebral disc, cervical: Code(s): M50.30 - Other cervical disc degeneration, unspecified cervical region Category: Medical (5) Left arm weakness: Code(s): R29.898 - Other symptoms and signs involving the musculoskeletal system Category: Medical Plan The symptoms of the left hand and left forearm weakness are progressing and patient now wants to see a neurosurgeon. I will schedule her for the appointment with neurosurgery. I also will schedule her for fresh MRI of the cervical spine. She has spinal cord stimulator [employer] and the spinal cord stimulator device could be stopped and MRI could be performed. I will also recommend her for the knee pain go to physical therapy evaluation for patellofemoral dysfunction. There is no signs of the arthritis so therefore I do not believe injections would be indicated for her. If neurosurgical procedure will not be indicated to help the pain in the left upper extremity [employer] spinal cord stimulator device could be extended and cover the pain of the left upper extremity. Fortunately it will not change anything about the strength of the left upper extremity. Orders: Orders PT Evaluation and Treatment Today M25.869 - Other specified joint disorders, unspecified knee MR cervical spine wo con Today M47.812 - Spondylosis without myelopathy or radiculopathy, cervical region, M50.30 - Other cervical disc degeneration, unspecified cervical region, R29.898 - Other symptoms and signs involving the musculoskeletal system Referrals Neuro Spine Referral M47.812 - Spondylosis without myelopathy or radiculopathy, cervical region, M50.30 - Other cervical disc degeneration, unspecified cervical region, R29.898 - Other symptoms and signs involving the musculoskeletal system Patient Instructions: I here by testify that I spent 35 minutes in conversation with this patient as well as evaluating her images, providing necessary orders, planning her care and organizing this note. Coding Level of Care Code Est Pt Level 4 (08106) Diagnoses Patellofemoral dysfunction M25.869 Upper extremity weakness R29.898 Spondylosis of cervical spine M47.812 Degeneration, intervertebral disc, cervical M50.30 Left arm weakness R29.898
[2024-09-08 08:38] VITALS: BP 130/80; PULSE 84; O2SAT 99; BMI 25.7
== END 2024-09-08 08:50 | disposition home or self-care (01) ==
PROVIDERS: PCP Internal Medicine; Visit Provider Anesthesiology
DX: M25.869 Other specified joint disorders, unspecified knee (principal); R29.898 Other symptoms and signs involving the musculoskeletal system; M47.812 Spondylosis without myelopathy or radiculopathy, cervical region; M50.30 Other cervical disc degeneration, unspecified cervical region
CPT/HCPCS: 99214

== ENCOUNTER → 2024-09-08 08:33 | Outpatient (BNVA) | payer OTHER, SELFPAY | PROVIDERS: PCP Internal Medicine; Visit Provider Anesthesiology | DX: M25.862 Other specified joint disorders, left knee (principal); M47.812 Spondylosis without myelopathy or radiculopathy, cervical region; M50.30 Other cervical disc degeneration, unspecified cervical region; R29.898 Other symptoms and signs involving the musculoskeletal system | CPT/HCPCS: 99212 ==

== ENCOUNTER 2024-12-07 18:35 | Outpatient (REF) | payer OTHER, SELFPAY | END 2024-12-07 18:36 | disposition home or self-care (01) | LOC: HO.MRI 18:35 | PROVIDERS: PCP Internal Medicine; Visit Provider Anesthesiology | DX: Z13.89 Encounter for screening for other disorder (principal) ==

== ENCOUNTER 2024-12-08 06:41 | Outpatient (REF) | payer OTHER, SELFPAY ==
--- OUTSIDE RECORDS SUMMARY | 2024-12-08 06:44 | XMS_ITS | Clinical Summary ---
Author Organization [facility] Address [address] [place] [address] Care Team Providers Care [place] Operator Name Role Phone Mayda Pedro MD Primary Care Provider [phone] Surgical History Surgery Date Site/Laterality Comments OTHER SURGICAL HISTORY PROCEDURE: IMPLANT BREAST SILICONE/EQ ESOPHAGOGASTRODUODENOSCOPY 02/20/2008 PROCEDURE: MI EGD TRANSORAL BIOPSY SINGLE/MULTIPLE; COMMENT: Biopsy for H. pylori-positive COLONOSCOPY 02/20/2008 PROCEDURE: MI COLONOSCOPY FLX DX W/COLLJ SPEC WHEN PFRMD; COMMENT: Negative/incomplete examination to mid transverse colon. 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 Historical Medical DX 02/27/2008 DX:H. pylo ri infection Hypertension DX:Hypertension High cholesterol DX:High cholest colin Family History Medical History Relation Name Comments Hypertension Father Diabetes Maternal Grandfather Hypertension Mother Heart attack Paternal Grandfather Relation Name Status Comments Father Maternal Grandfather Mother Paternal Grandfather Social History Tobacco Use Types Packs/Day Years Used Date Smoking Tobacco: Never Smokeless Tobacco: Never Alcohol Use Standard Drinks/Week Comments Yes 0 (1 standard drink = 0.6 oz pur e alcohol) Sex and Gender Information Value Date Recorded Sex Assigned at Not on file Gender Identity Not on file Sexual Orientation Not on file Obstetrics History Plan of Treatment Health Maintenance Due Date Last Done Comments Breast Cancer Screening 1975 Hepatitis B Vaccines (1 of 3 - 19+ 3-dose series) 1994 Cervical Cancer Screening: P ap Smear 1996 DTaP,Tdap,and Td Vaccines (2 - Td or Tdap) 11/18/2017 11/18/2007 COVID-19 Vaccine (1 - 2023-2 5 season) 2024 Influenza Vaccine (#1) 2024 HIB Vaccines Aged Out No longer eligi ble based on patient's age to complete this topic HPV Vaccines Aged Out No longer eligi ble based on patient's age to complete this topic Hepatitis A Vaccines Aged Out No long er eligible based on patient's age to complete this topic IPV Vaccines Aged Out No longer eligi ble based on patient's age to complete this topic MMR Vaccines Aged Out No longer eligi ble based on patient's age to complete this topic Meningococcal ACWY Vaccine Aged Out N o longer eligible based on patient's age to complete this topic Pneumococcal Vaccine: Pediat rics (0 to 5 Years) and At-Risk Patients (6 to 64 Years) Aged Out No longer eligi ble based on patient's age to complete this topic RSV Immunization Patients Un belkis 20 months Aged Out No longer eligible b ased on patient's age to complete this topic Varicella Vaccines Aged Out No longer eligible based on patient's age to complete this topic Care Teams [place] Operator Relationship Specialty Start Date End Date Mayda Pedro MD [address] [place] [id number] PCP - General 09/24/02
--- OUTSIDE RECORDS SUMMARY | 2024-12-08 06:44 | XMS_ITS | Data Portability ---
Author Organization [facility], [facility] Address [address] [place] [address] Care Team Providers Care Manager Income Tax Name Role Phone OLIVER GARCIAANNA Primary Care Provider Assessment No assessment recorded. Plan of Treatment Reminders Order Date Submit Date Provider Last Modified By Organization Details Last Modified Time Details Appointments None recorded. Lab None recorded. Referral None recorded. Procedures None recorded. Surgeries None recorded. Imaging XR, ankle, 3 or more view - left foot /ankle 5v wb ,new problem . room 102 024 [facility] Office, [address], [address], [place], [address], 4 14:04:29 XR, foot, 2 [facility] Office, [address], [address], [place], [address], 4 14:04:29 Medication Orders None recorded. Patient TargetsNo targets recorded. Patient InstructionsNo instructions recorded. Reason for Referral None Reported. Results Created Date Observation Date Name Description Value Unit Range Abnormal Flag Note LastModifiedBy Organization Detail LastModifiedTime 07/11/20 24 03/22/2021 imagi ng/di agnos tic resul t No observ ation record ed. [email or web address] Not Available 06/14 20:50:56 07/11/20 24 04/27/2021 imagi ng/di agnos tic resul t No observ ation record ed. [email or web address] Not Available 06/14 20:51:04 07/11/20 24 02/23/2021 imagi ng/di agnos tic resul t No observ ation record ed. [email or web address] Not Available 06/14 20:51:06 07/11/20 24 02/23/2021 imagi ng/di agnos tic resul t No observ ation record ed. [email or web address] Not Available 06/14 20:51:08 07/11/20 24 12/13/2020 imagi ng/di agnos tic resul t No observ ation record ed. [email or web address] Not Available 06/14 20:51:19 Result Notes None recorded. Problems Name Problem SNOMED Code Status Onset Date Resolution Date Notes Provider Name and Address Organization Details Recorded Time No complaints 922672025 Active Status : 'A'; Not Available [facility] 09:13:06 Problem Notes None recorded. Procedures Surgical History None recorded. Imaging Results Imaging Date Name Status LastModified by [facility] Details LastModified Time 03/22/2021 imaging/diag nostic result completed Information not available 07/11/2024 20:50:56 04/27/2021 imaging/diag nostic result completed Information not available 07/11/2024 20:51:04 02/23/2021 imaging/diag nostic result completed Information not available 07/11/2024 20:51:06 02/23/2021 imaging/diag nostic result completed Information not available 07/11/2024 20:51:08 12/13/2020 imaging/diag nostic result completed Information not available 07/11/2024 20:51:19 Procedure Notes None recorded. Medical Equipment None Reported. Allergies Allergen ID Allergen Name Allergen Category Reaction Reaction Severity Criticality Documentation Date Start Date Code Code System Note Provider Name and Address Organization Details Recorded Time 92902 lisinopri l medicatio n Not available Not available Not available 01/14/20242020 62784 RxNorm Not Available [facility] 12:57:45 41131 pravastat in sodium medicatio n Not available Not available Not available 01/14/2024202014 4 RxNorm Not Available [facility] 12:57:45 Medications Name Sig Start Date Stop Date Status Note LastModified by Organization Details LastModified Time cyanocobalam in (vit B-12) 1,000 mcg tablet TAKE 1 TABLET BY MOUTH EVERY DAY active Not Available Not Available No t Available amlodipine 2.5 mg tablet TAKE 1 TABLET BY MOUTH EVERY DAY active Not Available Not Available No t Available amlodipine 5 mg tablet TAKE 1 TABLET BY MOUTH EVERY DAY active Not Available Not Available No t Available amoxicillin 875 mg tablet TAKE 1 TABLET BY MOUTH TWICE A DAY FOR 5 DAYS active Not Available Not Available No t Available lorazepam 0.5 mg tablet TAKE 1/2-1 TABLET BY MOUTH ONCE A DAY NEEDED FOR ANXIETY active Not Available Not Available No t Available triamcinolon e acetonide 0.025 % topical cream APPLY 1 APPLICATION TOPCIALLY EVERY DAY active Not Available Not Available No t Available gabapentin 300 mg capsule TAKE 1 CAPSULE BY MOUTH 3 TIMES A DAY active Not Available Not Available Not Available sertraline 25 mg tablet TAKE 1 TABLET BY MOUTH TWICE A DAY active Not Available Not Available No t Available omeprazole 20 mg capsule,rosmery yed release TAKE 1 CAPSULE BY MOUTH EVERY DAY active Not Available Not Available No t Available Denta 5000 Plus 1.1 % cream USE TO BRUSH TEETH TWO TIMES A DAY active Not Available Not Available No t Available DentaGel 1.1 % USE TO BRUSH TEETH TWO TIMES A DAY active Not Available Not Available No t Available rosuvastatin 10 mg tablet TAKE 1 TABLET BY MOUTH EVERY DAY active Not Available Not Available No t Available metoprolol tartrate 25 mg tablet TAKE 1 TABLET BY MOUTH TWICE A DAY active Not Available Not Available No t Available gabapentin Gabapentin 250MG/5ML Solution 2019 active Statu s: 'Curr ent'; Not Available Not Available Not Available Vitals Date Recorded Body height Body mass index (BMI) Body weight Provider Name and Address Organization Details Last Updated DateTime 06/30/2024 161.29 cm 24.9 kg/m2 17126.71 g Jyoti Alfaro [place] - [facility] 06/30/2024 09:51:02 Social History None recorded. Functional Status None recorded. Mental Status None recorded. Family History Nothing Reported. Medical History No medical history recorded. Gynecological HistoryNo gynecological history recorded. Obstetrics History GPAL:G 0 P 0 0 0 0 Past Encounters Encounter ID Performer Location Encounter Start Date Encounter Closed Date Diagnosis/Indication Diagnosis SNOMED-CT Code Diagnosis ICD10 Code Diagnosis Note [id number] Muna Ndiaye MD [facility] [address] [place] [address] 06/30/2024 09:23:10 07/23/2024 08:12:01 Pain in left foot [id number] 73709 M79.672 Left foot drop [id number] 1 37546 M21.372 Health Concerns Section Related Observation LastModified by Organization Detai ls LastModified Time None Recorded Concern Status LastModified by Organization Details LastModified Time None Recorded Advance Directives Directive None Recorded Payers Encounter Date Sequence Insurance Name Policy Number Policy Theodore Covered Member ID Theodore Member ID Guarantor Name 06/30/2024 1 [facility] - DOS ON OR AFTER 2023 - ONE CARE (MEDICARE REPLACEMENT/ADV ANTAGE - HMO) Winter Ji Melton [id number] Winter Ji Melton Notes Date Note Type Note Provider Name and Address Organization Details Recorded Time 06/30/2024 text/html CHIEF COMPLAINT: Follow up left foot drop HISTORY OF PRESENT ILLNESS: Ms. Melton presents today for follow-up evaluation. We have not seen her in office since august 2022. Patient has a somewhat complicated history involving the left lower extremity. She is a very pleasant 48-year-old female who we have been following for a left lower extremity foot drop of unclear etiology. Her symptoms began in April 2020, following a nonsyncopal fall. The patient reports she hit her back and twisted her left knee. She has had imaging of both the knee and the lumbar spine which has not revealed any pathology that would explain her foot drop. She has undergone multiple EMGs, none of which have demonstrate any evidence of lumbosacral injury, sciatic nerve injury or common peroneal nerve injury. We do have an MRI of the left ankle which has not shown any disruption of the tendons to explain her motor deficits. We have been managing her thus far and a carbon fiber AFO brace. She has continued to have a flexible brace will deformity. On presentation today the patient reports continued need for use of the brace. When she sits for long periods of time she gets burning pain and tingling in her foot. She is able to get up and walk for soft. She is ambulating without any assistive devices. She has stopped working with physical therapy. She has had a spinal cord stimulator placed.PHYSICAL EXAM:Patient in no acute distress, alert and oriented. Mood and affect appropriateOn standing examination there is symmetric neutral alignment of the hindfoot bilaterally with neutral forefoot positionPatient walks with an obvious footdrop on the left side. Focused examination left lower extremity there is significant atrophy of the gastric soleus complex as well as the lateral and anterior compartment musculatureThere is persistent has decreased sensation in the L4 and L5 distributionsOn motor exam she has 2/5 strength of the tibialis anterior, peroneals, EHL and toe extensors. There is 2/5 FHL, 2/5 gastrocs soleus. 2/5 inversion strengthToes are warm and well-perfused with palpable DP and PT pulsesX-rays (previous imaging): AP and oblique weightbearing views of the ankle demonstrate no evidence of acute fracture or degenerative change. Tibiotalar and mortise is symmetric with no talar tilt or talar shift. Imaging of the left foot demonstrates no evidence of acute fracture or degenerative change. Alignment on both AP and lateral imaging is within normal physiologic parametersIMPRESSION:- left footdrop of unclear etiology; suspect neurogenic although EMG and MRI of knee/spine without significant pathology- MRI ankle with no evidence of tendon rupturePLAN:-Patient continues to do well with her carbon fiber AFO brace. She continues have a flexible and reasonable foot with no evidence of equinus contracture or varus contractures. ? Have given her a prescription for a new carbon fiber AFO brace. We did briefly discuss potential use of a posterior shell hinged AFO brace, though the patient understands that this is slightly more cumbersome and slightly heavier than a carbon fiber AFO ? We will continue to follow the patient on a yearly basis. Muna Ndiaye MD [address] [place] [address] [address], [place], [address], [facility] 06/30/2024 14:55:10 OBGyn Episode No OBEpisode recorded.
[2024-12-08 11:01] LABS: Alanine Aminotransferase 26 U/L (0-31); Albumin Level 4.2 g/dL (3.5-5.0); Alkaline Phosphatase 58 U/L (39-117); Anion Gap 9 (12-20); Aspartate Amino Transferase 23 U/L (5-31); Bilirubin Total 0.4 mg/dL (0.0-1.0); Blood Urea Nitrogen 5 mg/dL (9-16); Calcium 9.2 mg/dL (8.4-10.2); Carbon Dioxide 23 mmol/L (22-29); Chloride 110 mmol/L (96-108); Cholesterol 183 mg/dL (<200); Estimated Glomerular Filt Rate > 60; Glucose Fasting 92 mg/dL (60-99); HDL Cholesterol 42 mg/dL (>40); LDL Cholesterol Calculated 102 mg/dL (<100); Sodium 138 mmol/L (135-145); Total Protein 7.8 g/dL (6.5-8.0); Triglycerides 197 mg/dL (<150)
== END 2024-12-08 06:42 | disposition home or self-care (01) ==
LOC: HO.HMGCLDS 06:41
PROVIDERS: PCP Internal Medicine; Visit Provider Internal Medicine
DX: Z00.00 Encounter for general adult medical examination without abnormal findings (principal); E78.5 Hyperlipidemia, unspecified
CPT/HCPCS: 36415; 80053; 80061

== ENCOUNTER → 2024-12-09 07:15 | Outpatient (BNV) | payer OTHER, SELFPAY | PROVIDERS: PCP Internal Medicine; Visit Provider Radiology Diagnostic Radiology | DX: R29.898 Other symptoms and signs involving the musculoskeletal system (principal) | CPT/HCPCS: 72141 ==

== ENCOUNTER 2024-12-09 07:20 | Outpatient (REF) | payer OTHER, SELFPAY ==
--- NOTE | ~2024-12-09 | MR_ITS ---
CLINICAL HISTORY: R29.898 - Other symptoms and signs involving the musculoskeletal system MRI cervical spine without contrast Comparison: None Findings: Multilevel minimal central osteophytosis. This is seen from C3-4 to C6-7. No significant canal or neural foraminal narrowing. Multilevel bilateral perineural cysts noted. Remaining levels are unremarkable. No acute bony signal abnormality identified. Posterior bony alignment is normal. Cervical cord normal in course and caliber. No internal cord signal abnormality. Impression: No significant abnormality This document has been electronically signed by: Akash Rodriguez MD on 12/09/2024 22:37:13
--- OUTSIDE RECORDS SUMMARY | 2024-12-09 07:22 | XMS_ITS | Clinical Summary ---
Author Organization [facility] Address [address] [place] [address] Care Team Providers Care Irrigation Equipment Installer Name Role Phone Mayda Pedro MD Primary Care Provider [phone] Surgical History Surgery Date Site/Laterality Comments OTHER SURGICAL HISTORY PROCEDURE: IMPLANT BREAST SILICONE/EQ ESOPHAGOGASTRODUODENOSCOPY 02/20/2008 PROCEDURE: DE EGD TRANSORAL BIOPSY SINGLE/MULTIPLE; COMMENT: Biopsy for H. pylori-positive COLONOSCOPY 02/20/2008 PROCEDURE: DE COLONOSCOPY FLX DX W/COLLJ SPEC WHEN PFRMD; COMMENT: Negative/incomplete examination to mid transverse colon. APPENDECTOMY PROCEDURE: DE APPENDECTOMY Medical History Medical History Date Comments [...] age to complete this topic Care Teams Irrigation Equipment Installer Relationship Specialty Start Date End Date Mayda Pedro MD [address] [place] [id number] PCP - General 09/24/02
--- OUTSIDE RECORDS SUMMARY | 2024-12-09 07:22 | XMS_ITS | Data Portability ---
Author Organization [facility], [facility] Address [address] [place] [address] Care Team Providers Care Shoe Shiner Name Role Phone OLIVER GARCIAANNA Primary Care [...] wb ,new problem . room 102 024 [facility], [address], [address], [place], [address], 4 14:04:29 XR, foot, 2 view [facility], [address], [address], [place], [address], 4 14:04:29 Medication Orders None recorded. Patient [...] Address Organization Details Recorded Time No complaints [id number] Active Status : 'A'; Not Available [facility] 09:13:06 Problem Notes None recorded. Procedures Surgical History None recorded. Imaging Results Imaging Date Name Status LastModified by [facility] Details LastModified Time 03/22/2021 imaging/diag nostic result [...] Name and Address Organization Details Recorded Time 78737 lisinopri l medicatio n Not available Not available Not available 01/14/20242020 92469 RxNorm Not Available [facility] 12:57:45 50797 pravastat in sodium medicatio n Not available Not available Not available 01/14/2024202014 4 RxNorm Not Available [facility] 12:57:45 Medications Name Sig Start Date Stop [...] Updated DateTime 06/30/2024 161.29 cm 24.9 kg/m2 39346.71 g Jyoti Alfaro [place] - [facility] 06/30/2024 09:51:02 Social History None recorded. Functional Status None recorded. Mental Status None recorded. Family History Nothing Reported. Medical History No medical history recorded. Gynecological HistoryNo gynecological history recorded. Obstetrics History GPAL:G 0 P 0 0 0 0 Past Encounters Encounter ID Performer Location Encounter Start Date Encounter Closed Date Diagnosis/Indication Diagnosis SNOMED-CT Code Diagnosis ICD10 Code Diagnosis Note [id number] Muna Ndiaye MD [facility] [address] [place] [address] 06/30/2024 09:23:10 07/23/2024 08:12:01 Pain in left foot [id number] 00388 M79.672 Left foot drop [id number] 1 16387 M21.372 Health Concerns Section Related Observation LastModified by Organization Detai ls LastModified Time None Recorded Concern Status LastModified by Organization Details LastModified Time None Recorded Advance Directives Directive None Recorded Payers Encounter Date Sequence Insurance Name Policy Number Policy Theodore Covered Member ID Theodore Member ID Guarantor Name 06/30/2024 1 [facility] - DOS ON OR AFTER 2023 - ONE CARE (MEDICARE REPLACEMENT/ADV ANTAGE - HMO) Winter Ji Melton [id number] Winter Ji Melton Notes Date Note Type [...] on a yearly basis. Muna Ndiaye MD [address] [place] [address] [address], [place], [address], [facility] - [facility] 06/30/2024 14:55:10 OBGyn Episode No OBEpisode recorded.
== END 2024-12-09 07:21 | disposition home or self-care (01) ==
LOC: HO.MRI 07:20
PROVIDERS: PCP Internal Medicine; Visit Provider Anesthesiology
DX: R29.898 Other symptoms and signs involving the musculoskeletal system (principal); M47.812 Spondylosis without myelopathy or radiculopathy, cervical region; M50.30 Other cervical disc degeneration, unspecified cervical region
CPT/HCPCS: 72141

== ENCOUNTER 2024-12-26 09:26 | Outpatient (AMB) | payer OTHER, SELFPAY ==
[2024-12-26 09:34] VITALS: BMI 25.5
--- NOTE | 2024-12-26 09:34 | HO.SPINEOV ---
Vital Signs 12/26/24 09:34 Height 5 ft 3 in Weight 144 lb BMI 25.5 Intake Visit Reasons: Neck pain Intake Note: Ms. Melton is here today c/o neck pain that radiates down the left arm causing numbness and tingling to the fingers. Client Support Consultant Required: No Allergies pravastatin Allergy (Unknown, Verified 12/26/24 09:37) Stomach Upset lisinopril Adverse Reaction (Verified 12/26/24 09:37) cough Physical Exam Vital Signs: BMI result Body Mass Index 25.5 Assessment & Plan Assessment & Plan (1) Left arm weakness: Code(s): R29.898 - Other symptoms and signs involving the musculoskeletal system Category: Medical (2) H/O colonoscopy: Comment: 02/2018 1 polyp serrated polyp repeat 05/2023 Dr. Cruz, recheck in 5 years Code(s): Z98.890 - Other specified postprocedural states Category: Medical (3) Degeneration, intervertebral disc, cervical: Code(s): M50.30 - Other cervical disc degeneration, unspecified cervical region Category: Medical Plan Dear Dr Russell, Thank you for referring Mrs Melton to our office today. She is a very nice 49 year old female who had a substantial fall back in 2019 where she sustained multiple injuries to her body on the left side including damage to her wrist, shoulder, severe injury to her knee as well as severe injury to the deep peroneall nerve leaving her with a footdrop and chronic left-sided leg pain. 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 It was not felt to be surgical. After she recovered from the initial acuity of the injury she started to notice some numbness in her left hand. She mostly just try to deal with it but over time it progressed to where it was becoming quite bothersome. She saw somebody at [facility] who did an EMG nerve conduction study and she was told that it showed some kind of reinnervation but that it did not show cubital tunnel syndrome or any other type of compression of the nerve. Over the course of the following few years she has noticed an increase in the numbness but more recently started to notice weakness of the left hand. She describes it as feeling like her hand is not functional. She has numbness of the 3rd 4th and 5th digits on her left hand. She underwent a cervical MRI showing some mild degenerative changes but perineural cysts along the bilateral cervical foramina. She was sent today for an evaluation. She does not have a classic radiculopathy coming down the arm in the sense that shooting pain from her neck is really not a factor in her life. It is more the it is the tingling and numbness in the weakness of the hand that bothers her and it will radiate up her forearm into her elbow. PMH: She is reasonably healthy, she has history of hypertension, as mentioned footdrop on the left, chronic regional pain syndrome status post spinal cord stimulator, high cholesterol, appendectomy, breast surgery for move removal of benign cells Social hx: She has not smoke, drink use any recreational drugs, Medications: Amlodipine, Crestor, gabapentin, metoprolol, omeprazole, Zoloft, Ativan, fish oil Allergies: Lisinopril Physical exam: Awake alert oriented no acute distress, motor examination reveals diffuse weakness of the left hand in the finger intrinsics, finger extensors, finger flexors as well as thumb opposition. She also has slight amount of weakness of her left wrist and left triceps as well. I would rate all these findings as 4- out of 5. Proximal left arm is full strength in the biceps and deltoid, right arm strength is normal. She has a left footdrop, wearing an AFO today. Reflexes are normal in the upper extremities. Positive Tinel's in her left elbow. Imaging review: Cervical MRI shows mild degenerative disc disease throughout the cervical spine with no evidence of spinal cord compression. She does have bilateral perineural cysts including at the bilateral C6-7 and C7-T1 regions. Impression: 49-year-old female who sustained traumatic injuries after a fall in 2019 resulting in multiple chronic pains as well as a left footdrop from avulsion of the left peroneal nerve, who shortly after that also developed numbness of her left hand going up into the elbow. She has numbness of her 3rd 4th and 5th digits on her left hand and more recently over the last few years has developed weakness of her left arm. On my motor exam she has multiple myotomal distribution weakness not only in the hand but also tracking up to the wrist and left triceps. She did have an EMG at 1 point about a year or so after the initial fall which showed some kind of reinnervation but not since the weakness has developed over the last year. She has a positive Tinel's in her left elbow. I am going to get an repeat EMG to see if this is somehow evolution of a cubital tunnel syndrome. I am not sure how to explain the triceps and wrist weakness though. She does have these interesting Tarlov cysts in her C6-7 and C7-T1 regions which are relatively large. Those would fit with the myotome and dermatomal distributions of her weakness and numbness, however typically those are not under high enough pressure to cause true nerve impingement. Once the repeat EMG is completed, I will see her back and I can review all this with Dr. Kim to see if we can find some way to help her. Thank you for allowing us to care for your patient. The total time spent with this visit with this patient was 45 minutes reviewing history, physical exam, service imaging review, and implementation of treatment plan or further diagnostic testing Irwin Kim MD,PhD [facility] Orders: Orders NE electromyogram (EMG) Today R29.898 - Other symptoms and signs involving the musculoskeletal system, Z98.890 - Other specified postprocedural states Coding Level of Care Code New Pt Level 4 (41188) Diagnoses Left arm weakness R29.898 H/O colonoscopy Z98.890 Degeneration, intervertebral disc, cervical M50.30
--- OUTSIDE RECORDS SUMMARY | 2024-12-26 09:49 | XMS_ITS | Clinical Summary ---
Author Organization [facility] Address [address] [place] [address] Care Team Providers Care Documentation Designer Name Role Phone Mayda Pedro MD Primary Care Provider [phone] Surgical History Surgery Date Site/Laterality Comments OTHER SURGICAL HISTORY PROCEDURE: IMPLANT BREAST SILICONE/EQ ESOPHAGOGASTRODUODENOSCOPY 02/20/2008 PROCEDURE: [place] EGD TRANSORAL BIOPSY SINGLE/MULTIPLE; COMMENT: Biopsy for H. pylori-positive COLONOSCOPY 02/20/2008 PROCEDURE: [place] COLONOSCOPY FLX DX W/COLLJ SPEC WHEN PFRMD; COMMENT: Negative/incomplete examination to mid transverse colon. APPENDECTOMY PROCEDURE: [place] APPENDECTOMY Medical History Medical History Date Comments [...] drink = 0.6 oz pur e alcohol) Comments Unknown Sex and Gender Information Value Date Recorded Sex Assigned at Not on file Legal Sex Female 2:16 PM EST Gender Identity Not on file Sexual Orientation Not on file Obstetrics History Plan of Treatment Health Maintenance Due Date Last Done Comments Breast Cancer Screening 1975 Hepatitis B Vaccines (1 of 3 - 19+ 3-dose series) 1994 Cervical Cancer Screening: P ap Smear 1996 DTaP,Tdap,and Td Vaccines (2 - Td or Tdap) 11/18/2017 11/18/2007 COVID-19 Vaccine ( - 2023-2 5 season) 2024 Influenza Vaccine [...] patient's age to complete this topic Meningococcal B Vacine Aged Out No lo nger eligible based on patient's age to complete [...] age to complete this topic Care Teams Documentation Designer Relationship Specialty Start Date End Date Mayda Pedro MD [address] [place] [id number] PCP - General 09/24/02
--- OUTSIDE RECORDS SUMMARY | 2024-12-26 09:49 | XMS_ITS | Data Portability ---
Author Organization [facility]geons [facility], [facility] Address [address] [place] [address] Care Team Providers Care Silo Tender Name Role Phone OLIVER GARCIAANNA Primary Care [...] wb ,new problem . room 102 024 [facility], [address], [address], [place], [address], 4 14:04:29 XR, foot, 2 view [facility], [address], [address], [place], [address], 4 14:04:29 Medication Orders None recorded. Patient [...] Address Organization Details Recorded Time No complaints [id number] Active Status : 'A'; Not Available [facility] 09:13:06 Problem Notes None recorded. Procedures Surgical History None recorded. Imaging Results Imaging Date Name Status LastModified by [facility] Details LastModified Time 03/22/2021 imaging/diag nostic [...] Name and Address Organization Details Recorded Time 83750 lisinopri l medicatio n Not available Not available Not available 01/14/20242020 88403 RxNorm Not Available [facility] 12:57:45 77834 pravastat in sodium medicatio n Not available Not available Not available 01/14/2024202014 4 RxNorm Not Available [facility] 12:57:45 Medications Name Sig Start Date Stop [...] Updated DateTime 06/30/2024 161.29 cm 24.9 kg/m2 15964.71 g Jyoti Alfaro [place] - [facility] 06/30/2024 09:51:02 Social History None recorded. Functional Status None recorded. Mental Status None recorded. Family History Nothing Reported. Medical History No medical history recorded. Gynecological HistoryNo gynecological history recorded. Obstetrics History GPAL:G 0 P 0 0 0 0 Past Encounters Encounter ID Performer Location Encounter Start Date Encounter Closed Date Diagnosis/Indication Diagnosis SNOMED-CT Code Diagnosis ICD10 Code Diagnosis Note [id number] Muna Ndiaye MD [facility] [address] [place] [address] 06/30/2024 09:23:10 07/23/2024 08:12:01 Pain in left foot [id number] 91419 M79.672 Left foot drop 619565325 1 28370 M21.372 Health Concerns Section Related Observation LastModified by Organization Detai ls LastModified Time None Recorded Concern Status LastModified by Organization Details LastModified Time None Recorded Advance Directives Directive None Recorded Payers Encounter Date Sequence Insurance Name Policy Number Policy Theodore Covered Member ID Theodore Member ID Guarantor Name 06/30/2024 1 [facility] - DOS ON OR AFTER 2023 - ONE CARE (MEDICARE REPLACEMENT/ADV ANTAGE - HMO) Winter Ji Melton [id number] Winter Ji Melton Notes Date Note Type [...] on a yearly basis. Muna Ndiaye MD [address] [place] [address] [address], [place], [address], [facility] - [facility] 06/30/2024 14:55:10 OBGyn Episode No OBEpisode recorded.
== END 2024-12-26 10:29 | disposition home or self-care (01) ==
PROVIDERS: PCP Internal Medicine; Referring Provider Anesthesiology; Visit Provider Physician Assistant
DX: R29.898 Other symptoms and signs involving the musculoskeletal system (principal); Z98.890 Other specified postprocedural states; M50.30 Other cervical disc degeneration, unspecified cervical region
CPT/HCPCS: 99204

== ENCOUNTER → 2024-12-26 09:26 | Outpatient (BNVA) | payer OTHER, SELFPAY | PROVIDERS: PCP Internal Medicine; Referring Provider Anesthesiology; Visit Provider Physician Assistant | DX: M50.30 Other cervical disc degeneration, unspecified cervical region (principal); R29.898 Other symptoms and signs involving the musculoskeletal system; Z98.890 Other specified postprocedural states | CPT/HCPCS: 99202 ==

== ENCOUNTER 2025-01-07 08:26 | Outpatient (REF) | payer OTHER, SELFPAY ==
--- NOTE | 2025-01-07 | EMG_ITS ---
Chief complaint: Left arm numbness and weakness Reason for referral: Evaluate for radiculopathy Referred by: Irwin HICKS Procedure done: Left upper extremity NCS/EMG Precautions and/or limitations: None The limb temperature was monitored continuously and remained between 32-36 degrees C during the performance of the NCS. Nerve Conduction Studies Anti Sensory Summary Table ?Stim Site NR Onset (ms) Norm Onset (ms) Peak (ms) Norm Peak (ms) O-P Amp (?V) Norm O-P Amp Site1 Site2 Delta-0 (ms) Dist (cm) Mariusz (m/s) Norm Mariusz (m/s) Left Median Anti Sensory (2nd Digit) Wrist ? 2.8 3.5 <3.6 69.5 >10 Wrist 2nd Digit 2.8 14.0 50 Left Radial Anti Sensory (Thumb) Forearm ? 1.7 2.2 <3.1 44.8 Forearm Thumb 1.7 0.0 Left Ulnar Anti Sensory (5th Digit) Wrist ? 2.3 3.1 <3.7 46.9 >15.0 Wrist 5th Digit 2.3 14.0 61 Motor Summary Table ?Stim Site NR Onset (ms) Norm Onset (ms) O-P Amp (mV) Norm O-P Amp iAmp (mV) Amp (1st) (%) Site1 Site2 Delta-0 (ms) Dist (cm) Mariusz (m/s) Norm Mariusz (m/s) Left Median Motor (Abd Poll Brev) Wrist ? 3.8 <3.9 6.0 >4.5 7.0 100.0 Elbow Wrist 3.8 17.5 46 >45 Elbow ? 7.6 6.6 7.8 110.0 Left Ulnar Motor (Abd Dig Minimi) Wrist ? 2.3 <3.0 8.7 >5 10.6 100.0 B Elbow Wrist 2.8 17.0 61 >45 B Elbow ? 5.1 8.1 9.9 93.1 A Elbow B Elbow 1.9 10.0 53 >45 A Elbow ? 7.0 7.2 8.7 82.8 EMG ?Side Muscle Nerve Root Ins Act Fibs Psw Amp Dur Poly Recrt Int Pat Comment Left 1stDorInt Ulnar C8-T1 Nml Nml Nml Nml Nml 0 Nml Complete Left FlexCarRad Median C6-7 Nml Nml Nml Nml Nml 0 Nml Complete Left Biceps Musculocut C5-6 Nml Nml Nml Nml Nml 0 Nml Complete Left Triceps Radial C6-7-8 Nml Nml Nml Nml Nml 0 Nml Complete Left Deltoid Axillary C5-6 Nml Nml Nml Nml Nml 0 Nml Complete Paraspinal EMG ?Side Muscle Nerve Root Ins Act Fibs Psw Comment Left Cervical Upper Rami Nml Nml Nml Left Cervical Mid Rami Nml Nml Nml Left Cervical Lower Rami Nml Nml Nml FINDINGS: All motor and sensory nerves tested showed normal latencies, amplitudes and conduction velocities. Concentric needle EMG was performed in selected muscles of the left upper extremity and cervical paraspinals. Study did not reveal signs of electric abnormalities as shown in the table above. IMPRESSION: 1. This is a normal study. 2. There is no electrodiagnostic evidence for median neuropathy, ulnar neuropathy, brachial plexopathy, or cervical radiculopathy. Thank you for your kind referral. Imelda Dunham MD, ANTHONY Board Certified, [place] [employer] and Rehabilitation (ABPMR) Board Certified, [place] Board of Electrodiagnostic Medicine (ABEM) CODIN [id number] MTDD
--- OUTSIDE RECORDS SUMMARY | 2025-01-07 08:56 | XMS_ITS | Clinical Summary ---
Author Organization [facility] Address [address] [place] [address] Care Team Providers Care Engraver Lettering Name Role Phone Mayda Pedro MD Primary Care Provider [phone] Surgical History Surgery Date Site/Laterality Comments OTHER SURGICAL HISTORY PROCEDURE: IMPLANT BREAST SILICONE/EQ ESOPHAGOGASTRODUODENOSCOPY 02/20/2008 PROCEDURE: DC EGD TRANSORAL BIOPSY SINGLE/MULTIPLE; COMMENT: Biopsy for H. pylori-positive COLONOSCOPY 02/20/2008 PROCEDURE: DC COLONOSCOPY FLX DX W/COLLJ SPEC WHEN PFRMD; COMMENT: Negative/incomplete examination to mid transverse colon. APPENDECTOMY PROCEDURE: DC APPENDECTOMY Medical History Medical History Date Comments [...] age to complete this topic Care Teams Engraver Lettering Relationship Specialty Start Date End Date Mayda Pedro MD [address] [place] [id number] PCP - General 09/24/02
--- OUTSIDE RECORDS SUMMARY | 2025-01-07 08:56 | XMS_ITS | Data Portability ---
Author Organization [facility], [facility] Address [address] [place] [address] Care Team Providers Care Student Advisor Name Role Phone OLIVER GARCIAANNA Primary Care [...] wb ,new problem . room 102 024 [facility], [address], [address], [place], [address], 4 14:04:29 XR, foot, 2 view [facility], [address], [address], [place], [address], 4 14:04:29 Medication Orders None recorded. Patient [...] Address Organization Details Recorded Time No complaints [id number] Active Status : 'A'; Not Available [facility] 09:13:06 Problem Notes None recorded. Procedures Surgical History None recorded. Imaging Results Imaging Date Name Status LastModified by [facility] Details LastModified Time 03/22/2021 imaging/diag nostic result [...] Name and Address Organization Details Recorded Time 43967 lisinopri l medicatio n Not available Not available Not available 01/14/20242020 94414 RxNorm Not Available [facility] 12:57:45 98318 pravastat in sodium medicatio n Not available Not available Not available 01/14/2024202014 4 RxNorm Not Available [facility] 12:57:45 Medications Name Sig Start Date Stop [...] Updated DateTime 06/30/2024 161.29 cm 24.9 kg/m2 46763.71 g Jyoti Alfaro [place] - [facility] 06/30/2024 09:51:02 Social History None recorded. Functional Status None recorded. Mental Status None recorded. Family History Nothing Reported. Medical History No medical history recorded. Gynecological HistoryNo gynecological history recorded. Obstetrics History GPAL:G 0 P 0 0 0 0 Past Encounters Encounter ID Performer Location Encounter Start Date Encounter Closed Date Diagnosis/Indication Diagnosis SNOMED-CT Code Diagnosis ICD10 Code Diagnosis Note [id number] Muna Ndiaye MD [facility] [address] [place] [address] 06/30/2024 09:23:10 07/23/2024 08:12:01 Pain in left foot [id number] 04578 M79.672 Left foot drop 896631760 1 95379 M21.372 Health Concerns Section Related Observation LastModified by Organization Detai ls LastModified Time None Recorded Concern Status LastModified by Organization Details LastModified Time None Recorded Advance Directives Directive None Recorded Payers Encounter Date Sequence Insurance Name Policy Number Policy Theodore Covered Member ID Theodore Member ID Guarantor Name 06/30/2024 1 [facility] - DOS ON OR AFTER 2023 - ONE CARE (MEDICARE REPLACEMENT/ADV ANTAGE - HMO) Winter Ji Melton [id number] Winter Ji Melton Notes Date Note Type [...] on a yearly basis. Muna Ndiaye MD [address] [place] [address] [address], [place], [address], [facility] - [facility] 06/30/2024 14:55:10 OBGyn Episode No OBEpisode recorded.
== END 2025-01-07 08:27 | disposition home or self-care (01) ==
LOC: HO.NEURO 08:26
PROVIDERS: PCP Internal Medicine; Visit Provider Physician Assistant
DX: R29.898 Other symptoms and signs involving the musculoskeletal system (principal); Z98.890 Other specified postprocedural states
CPT/HCPCS: 95886; 95909

== ENCOUNTER → 2025-01-07 08:35 | Outpatient (BNV) | payer OTHER, SELFPAY | PROVIDERS: PCP Internal Medicine; Visit Provider Physical Medicine & Rehabilitation | DX: R20.0 Anesthesia of skin (principal); R20.2 Paresthesia of skin | CPT/HCPCS: 95886; 95909 ==

== ENCOUNTER 2025-01-30 11:44 | Outpatient (AMB) | payer OTHER, SELFPAY ==
--- NOTE | 2025-01-30 11:51 | A.SPINEOV_ITS ---
Intake Visit Reasons: F/u EMG Intake Note: Ms. Melton is here today to F/u on the results to her EMG. Meteorological Observer Required: No Allergies pravastatin Allergy (Unknown, Verified 12/26/24 09:37) Stomach Upset lisinopril Adverse Reaction (Verified 12/26/24 09:37) cough Assessment & Plan Assessment & Plan (1) Left-sided weakness: Code(s): R53.1 - Weakness Category: Medical Plan Mrs Melton is here in follow-up. Her EMG was negative. She is still continues to complain of left hand weakness and left arm weakness. This is in the setting of progressive left leg weakness as well that was initially attributed to a fall that she took about 5 years ago where she had an acute footdrop and was diagnosed with peroneal neuropathy. I examined her again in the office today with Dr. Kim. She has diffuse left-sided weakness and possibly also some weakness in the left trapezius and sternomastoid. Reflexes are slightly increased on the left in the triceps and the patella compared to the right side. She does have muscle wasting as well diffusely in the left arm. She has had cervical imaging, thoracic imaging with no clear explanation for her symptoms. Dr. Kim would like to look at a brain MRI to see if we can find if there is something localizing in the central nervous system. I will call her with the results of the brain MRI. Total amount of time spent in this visit was 20 minutes in discussion of symptoms, EMG results and subsequent plan of care Irwin Kim MD,PhD [facility] Orders: Orders MR head/brain wo con Today R53.1 - Weakness Coding Level of Care Code Est Pt Level 3 (05527) Diagnoses Left-sided weakness R53.1
--- OUTSIDE RECORDS SUMMARY | 2025-01-30 14:22 | XMS_ITS | Data Portability ---
Author Organization [facility]geons [facility], [facility] Address [address] [place] [address] Care Team Providers Care Employment Recruiter Name Role Phone OLIVER GARCIAANNA Primary Care [...] wb ,new problem . room 102 024 [facility] Office, [address], [address], [place], [address], 4 14:04:29 XR, foot, 2 view [facility], [address], [address], [place], [address], 4 14:04:29 Medication Orders None recorded. Patient [...] Address Organization Details Recorded Time No complaints [id number] Active Status : 'A'; Not Available [facility] 09:13:06 Problem Notes None recorded. Procedures Surgical History None recorded. Imaging Results Imaging Date Name Status LastModified by [facility] Details LastModified Time 03/22/2021 imaging/diag nostic result [...] Name and Address Organization Details Recorded Time 64787 lisinopri l medicatio n Not available Not available Not available 01/14/20242020 15710 RxNorm Not Available [facility] 12:57:45 46280 pravastat in sodium medicatio n Not available Not available Not available 01/14/2024202014 4 RxNorm Not Available [facility] 12:57:45 Medications Name Sig Start Date Stop [...] Updated DateTime 06/30/2024 161.29 cm 24.9 kg/m2 15186.71 g Jyoti Alfaro [place] - [facility] 06/30/2024 09:51:02 Social History None recorded. Functional Status None recorded. Mental Status None recorded. Family History Nothing Reported. Medical History No medical history recorded. Gynecological HistoryNo gynecological history recorded. Obstetrics History GPAL:G 0 P 0 0 0 0 Past Encounters Encounter ID Performer Location Encounter Start Date Encounter Closed Date Diagnosis/Indication Diagnosis SNOMED-CT Code Diagnosis ICD10 Code Diagnosis Note [id number] Muna Ndiaye MD [facility] [address] [place] [address] 06/30/2024 09:23:10 07/23/2024 08:12:01 Pain in left foot [id number] 33114 M79.672 Left foot drop 626282859 1 79837 M21.372 Health Concerns Section Related Observation LastModified by Organization Detai ls LastModified Time None Recorded Concern Status LastModified by Organization Details LastModified Time None Recorded Advance Directives Directive None Recorded Payers Encounter Date Sequence Insurance Name Policy Number Policy Theodore Covered Member ID Theodore Member ID Guarantor Name 06/30/2024 1 [facility] - DOS ON OR AFTER 2023 - ONE CARE (MEDICARE REPLACEMENT/ADV ANTAGE - HMO) Winter Ji Melton [id number] Winter Ji Melton Notes Date Note Type [...] on a yearly basis. Muna Ndiaye MD [address] [place] [address] [address], [place], [address], [facility] - [facility] 06/30/2024 14:55:10 OBGyn Episode No OBEpisode recorded.
--- OUTSIDE RECORDS SUMMARY | 2025-01-30 14:23 | XMS_ITS | Clinical Summary ---
Author Organization [facility] Address [address] [place] [address] Care Team Providers Care Main Line Station Engineer Name Role Phone Mayda Pedro MD Primary Care Provider [phone] Surgical History Surgery Date Site/Laterality Comments OTHER SURGICAL HISTORY PROCEDURE: IMPLANT BREAST SILICONE/EQ ESOPHAGOGASTRODUODENOSCOPY 02/20/2008 PROCEDURE: IA EGD TRANSORAL BIOPSY SINGLE/MULTIPLE; COMMENT: Biopsy for H. pylori-positive COLONOSCOPY 02/20/2008 PROCEDURE: IA COLONOSCOPY FLX DX W/COLLJ SPEC WHEN PFRMD; COMMENT: Negative/incomplete examination to mid transverse colon. APPENDECTOMY PROCEDURE: IA APPENDECTOMY Medical History Medical History Date Comments [...] age to complete this topic Care Teams Main Line Station Engineer Relationship Specialty Start Date End Date Mayda Pedro MD [address] [place] [address] PCP - General 09/24/02
== END 2025-01-30 12:31 | disposition home or self-care (01) ==
LOC: HO.HNS 11:45
PROVIDERS: PCP Internal Medicine; Visit Provider Physician Assistant
DX: R53.1 Weakness (principal)
CPT/HCPCS: 99213

== ENCOUNTER → 2025-01-30 11:44 | Outpatient (BNVA) | payer OTHER, SELFPAY | PROVIDERS: PCP Internal Medicine; Visit Provider Physician Assistant | DX: R53.1 Weakness (principal) | CPT/HCPCS: 99212 ==

== ENCOUNTER 2025-04-18 06:51 | Outpatient (REF) | payer OTHER, SELFPAY ==
--- OUTSIDE RECORDS SUMMARY | 2025-04-18 06:54 | XMS_ITS | Data Portability ---
Author Organization [facility], [facility] Address [address] [place] [address] Care Team Providers Care Technology Sales Representative Name Role Phone OLIVER GARCIAANNA Primary Care Provider [phone] Assessment No assessment recorded. Plan of Treatment Reminders Order Date Submit Date Provider Last Modified By Organization Details Last Modified Time Details Appointments None recorded. Lab None recorded. Referral None recorded. Procedures None recorded. Surgeries None recorded. Imaging XR, ankle, 3 or more view - left foot /ankle 5v wb ,new problem . room 102 024 [email or web address] Office, [address], [address], [place], [address], 4 14:04:29 XR, foot, 2 view [email or web address], [address], [address], [place], [address], 4 14:04:29 Medication Orders None recorded. Patient [...] Address Organization Details Recorded Time No complaints [id number] Active Status : 'A'; Not Available [facility] 4 09:13:06 Problem Notes None recorded. Medical Equipment None Reported. Allergies Allergen ID Allergen Name Allergen Category Reaction Reaction Severity Criticality Documentation Date Start Date Code Code System Note Provider Name and Address Organization Details Recorded Time 07097 lisinopri l medicatio n Not available Not available Not available 01/14/20242020 89656 RxNorm Not Available [facility] 4 12:57:45 86680 pravastat in sodium medicatio n Not available Not available Not available 01/14/2024202014 4 RxNorm Not Available [facility] 4 12:57:45 Medications Name Sig Start Date Stop [...] Updated DateTime 06/30/2024 161.29 cm 24.9 kg/m2 12506.71 g Jyoti Alfaro [place] - [facility] 06/30/2024 09:51:02 Social History None recorded. Functional Status None recorded. Mental Status None recorded. Family History Nothing Reported. Medical History No medical history recorded. Gynecological HistoryNo gynecological history recorded. Obstetrics History GPAL:G 0 P 0 0 0 0 Past Encounters Encounter ID Performer Location Encounter Start Date Encounter Closed Date Diagnosis/Indication Diagnosis SNOMED-CT Code Diagnosis ICD10 Code Diagnosis Note [id number] MD [facility] [address] [place] [address] 06/30/2024 09:23:10 07/23/2024 08:12:01 Pain in left foot [id number] 36981 M79.672 Left foot drop 662909637 1 32322 M21.372 Health Concerns Section Related Observation LastModified by Organization Detai ls LastModified Time None Recorded Concern Status LastModified by Organization Details LastModified Time None Recorded Advance Directives Directive None Recorded Payers Encounter Date Sequence Insurance Name Policy Number Policy Theodore Covered Member ID Theodore Member ID Guarantor Name 06/30/2024 1 [facility] DOS ON OR AFTER 2023 - ONE CARE (MEDICARE REPLACEMENT/ADV ANTAGE - HMO) Winter Melton [id number] Winter Melton Notes Date Note Type Note Provider [...] on a yearly basis. Muna Ndiaye MD [address] [place], [place] [address] [address], [place], [address], [facility] - [facility] 06/30/2024 14:55:10 OBGyn Episode No OBEpisode recorded.
[2025-04-18 11:10] LABS: MANUAL DIFF FLAG NO
[2025-04-18 11:20] LABS: Basophils Percent Auto 0.2 % (0-2); Eosinophils Absolute Auto 0.4 X10*3/uL (0.0-0.4); Eosinophils Percent Auto 4.3 % (0-4); Hematocrit 35.3 % (37.0-47.0); Hemoglobin 11.8 g/dl (12.0-16.0); Imm Gran Abs Auto 0.03 X10*3/uL (0.00-0.03); Imm Gran Pct Auto 0.4 % (0.0-0.4); Lymphocytes Absolute Auto 1.8 X10*3/uL (1.2-4.9); Lymphocytes Percent Auto 22.3 % (20-40); Mean Corpuscular HGB Conc 33.4 g/dl (31.0-35.0); Mean Corpuscular Hemoglobin 29.3 pg (27.0-33.0); Mean Corpuscular Volume 87.6 fL (80.0-98.0); Mean Platelet Volume 10.3 fL (9.4-12.3); Monocytes Absolute Auto 0.6 X10*3/uL (0.1-1.2); Monocytes Percent Auto 6.9 % (2-11); Neutrophils Absolute Auto 5.3 x10*3/uL (2.0-8.3); Neutrophils Percent Auto 65.9 % (45-73); Platelet Count 289 X10*3/uL (160-400); Red Blood Count 4.03 X10*6/uL (4.20-5.50); Red Cell Distribution Width 13.2 % (11.0-16.0); White Blood Count 8.1 X10*3/uL (4.8-10.8)
[2025-04-18 11:47] LABS: Alanine Aminotransferase 16 U/L (0-31); Albumin Level 4.3 g/dL (3.5-5.0); Alkaline Phosphatase 60 U/L (39-117); Anion Gap 10 (12-20); Aspartate Amino Transferase 21 U/L (5-31); Bilirubin Total 0.4 mg/dL (0.0-1.0); Blood Urea Nitrogen 7 mg/dL (9-16); Carbon Dioxide 26 mmol/L (22-29); Chloride 107 mmol/L (96-108); Cholesterol 170 mg/dL (<200); Estimated Glomerular Filt Rate > 60; Glucose Fasting 93 mg/dL (60-99); HDL Cholesterol 40 mg/dL (>40); LDL Cholesterol Calculated 94 mg/dL (<100); Potassium 3.8 mmol/L (3.3-5.1); Sodium 139 mmol/L (135-145); Total Protein 7.3 g/dL (6.5-8.0); Triglycerides 184 mg/dL (<150)
[2025-04-18 12:04] LABS: TSH reflex Free T4 1.38 uIU/mL (0.32-4.0); Vitamin D 25-OH Total 33.5 ng/mL (>30)
== END 2025-04-18 06:52 | disposition home or self-care (01) ==
LOC: HO.HMGCLDS 06:51
PROVIDERS: PCP Internal Medicine; Visit Provider Internal Medicine
DX: Z00.00 Encounter for general adult medical examination without abnormal findings (principal); I10 Essential (primary) hypertension; E78.5 Hyperlipidemia, unspecified
CPT/HCPCS: 36415; 80053; 80061; 82306; 84443; 85025

== ENCOUNTER 2025-04-20 10:01 | Outpatient (AMB) | payer OTHER, SELFPAY ==
--- NOTE | 2025-04-20 10:24 | MHC.PC.OV ---
Vital Signs 04/20/25 10:27 Height 5 ft 3 in Weight 145 lb BMI 25.7 BP 110/68 Blood Pressure Location Lt brachial Position Sitting Respiration 18 Pulse 65 Pulse Source Pulse Oximeter Temp 97.8 F Temp Source Oral Pulse Oximetry (%) 98 Oxygen Delivery Method Room Air Intake Visit Reasons: Annual PE Intake Note: Pt is here today for PE. Allergies pravastatin Allergy (Unknown, Verified 04/20/25 10:27) Stomach Upset lisinopril Adverse Reaction (Verified 04/20/25 10:27) cough Medication List - Last Reconciled 04/20/25 by Joseline Hernandez MD amlodipine 5 mg PO DAILY gabapentin 300 mg PO TID 30 days lorazepam 0.25 mg PO DAILY PRN metoprolol tartrate 25 mg PO BID omeprazole 20 mg PO DAILY rosuvastatin 10 mg PO DAILY sertraline 25 mg PO BID triamcinolone acetonide 0.025% 1 appl topical DAILY Tobacco use date assessed: 04/20/25 Dental Screening Dental Screen Date: 04/20/25 Did you have a dental visit in the last 12 months?: Yes Did you have a dental problem in the last 6 months where you did not have access to dental care?: No Was dental information given to patient?: Patient has dentist HPI Annual PE HPI Details Pt presents for PE. [facility] Medical History (Updated 04/20/25 @ 16:26 by Joseline Hernandez MD) Anxiety and depression Palpitations Annual physical exam Left leg weakness Complex regional pain syndrome type 2 Complex regional pain syndrome Foot drop, left Cervical radiculopathy History of mammogram Hyperlipidemia HTN (hypertension) Disc degeneration, lumbar Surgical History History of esophagogastroduodenoscopy (EGD) S/P insertion of spinal cord stimulator Hx of appendectomy S/P breast implant, silicone H/O colonoscopy Family History Father Lung cancer Smoker Mother HTN (hypertension) Diabetes mellitus Brother No problems noted. Son No problems noted. Daughter No problems noted. 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 1. Little interest or pleasure in doing things: more than half the days 2. Feeling down, depressed, or hopeless: more than half the days 3. Trouble falling or staying asleep, or sleeping too much: several days 4. Feeling tired or having little energy: more than half the days 5. Poor appetite or overeating: several days 6. Feeling bad about yourself - or that you are a failure or have let yourself or your family down: several days 7. Trouble concentrating on things, such as reading the newspaper or watching television: several days 8. Moving or speaking so slowly that other people could have noticed. Or the opposite - being so fidgety or restless that you have been moving around a lot more than usual: not at all 9. Thoughts that you would be better off or of hurting yourself in some way: not at all Total score: 10 Depression Screening Interpretation: Positive (established with psychiatry) Depression Screening Follow-up: Existing condition and In treatment Depression Screening Done: Yes 49572 - PHQ-9 Billing: Yes Source: Developed by Drs. Joe Wheeler, Georgiana Aceves, Ricco Amaro and colleagues, with an educational carlitos from [employer]. Thrive Questionnaire Date Thrive assessed: 04/20/25 I am a: Patient What is your living situation today?: I have a steady place to live Within the past 12 months, did the food you bought not last and you didn't have the money to get more?: I choose not to answer this question Within the past 12 months, did you worry whether your food would run out before you got money to buy more?: Never true Do you have trouble paying for medicines?: No Do you have trouble getting transportation to medical appointments?: No Do you have trouble paying your heating and electricity bill?: No Do you have trouble taking care of your child, family member or friend?: No Do you have trouble with day-to-day activities such as bathing, preparing meals, shopping, managing finances, etc.?: I choose not to answer this question Are you currently unemployed and looking for a job?: I choose not to answer this question Are you interested in more education?: No Please select the resources that you would like help with: None Currently or been in a relationship where the following occur: No concerns reported THRIVE Score: 0 AUDIT C Alcohol Use Questionnaire (AUDIT-C) 1. How often do you have a drink containing alcohol?: Monthly or less 2. How many drinks containing alcohol do you have on a typical day when you are drinking?: 1 or 2 3. How often do you have six or more drinks on one occasion?: Never Total Score: 1 MOUNA-7 AMB Questionnaire MOUNA-7 Date MOUNA - 7 assessed: 04/20/25 Feeling nervous, anxious, or on edge: 2 = More than half the days Not being able to stop or control worryin = More than half the days Worrying too much about different things: 2 = More than half the days Trouble relaxin = Several days Being so restless that it is hard to sit still: 1 = Several days Becoming easily annoyed or irritable: 1 = Several days Feeling afraid as if something awful might happen: 1 = Several days Total MOUNA-7 score (0-4 normal; 5-9 mild; 10-14 moderate; 15-21 severe): 10 Source: Developed by Drs. Joe Wheeler, Georgiana Aceves, Ricco Amaro and colleagues, with an educational carlitos from [employer]. MOUNA-7 Assessment Billing MOUNA-7 Assessment Tool: MOUNA-7 Assessment 52124 Review of Systems Const All systems reviewed & are unremarkable except as noted in HPI and below Reports no additional complaints Eyes Reports no additional complaints ENT Reports no additional complaints Card Reports no additional complaints Resp Reports no additional complaints GI Reports no additional complaints Reports no additional complaints Physical exam (Primary Care) Vital Signs: Last Vital Signs Temp 97.8 F 04/20/25 10:27 Pulse 65 04/20/25 10:27 Resp 18 04/20/25 10:27 BP 110/68 04/20/25 10:27 Pulse Ox 98 04/20/25 10:27 Oxygen Delivery Method Room Air 04/20/25 10:27 BMI result Body Mass Index 25.7 Tobacco/Smoking Status: Tobacco use Status Tobacco use date assessed 04/20/25 04/20/25 10:28 Patient Tobacco Use Status Never used Tobacco 04/20/25 10:28 e-Cigarette/Vaping Use Never Used 04/20/25 10:25 PHQ-9: PHQ-9 Score PHQ-9: Total score 10 04/20/25 11:19 Depression Screening Interpretation: Positive (established with psychiatry) Depression Screening Follow-up: Existing condition and In treatment Thrive Assessment: Date of Thrive Assessment Date Thrive assessed 04/20/25 04/20/25 10:28 Currently or been in a relationship where the following occur: No concerns reported Const General: no acute distress HENMT Head: Yes normal to inspection Ears: hearing grossly normal bilaterally Mouth: Normal oral and palatal mucosa present Throat: Yes posterior oropharynx normal Eyes General: appearance normal, both eyes and all related structures Neck Neck: Yes no lymphadenopathy and Yes supple Resp Effort & Inspection: normal respiratory effort Auscultation: clear to auscultation bilaterally Cardio Rhythm: regular rhythm Heart sounds: S1 normal heart sound present and S2 normal heart sound present GI Inspection: Yes normal to inspection Palpation (GI): Soft to palpation Percussion: Yes normal to percussion Auscultation: normal bowel sounds Coding Level of Care Code Est Pt Prev Care 40-64y(52834) Diagnoses HTN (hypertension) I10 Hyperlipidemia E78.5 Annual physical exam Z00.00 Complex regional pain syndrome type 2 G56.40 Anxiety and depression F41.9; F32.A Additional Codes MOUNA-7 Assessment Billing - MOUNA-7 Assessment Tool: MOUNA-7 Assessment 12866 ([id number]) PHQ-9 - 96051 - PHQ-9 Billing: Yes ([id number]) Assessment & Plan Assessment & Plan (1) HTN (hypertension): Comment: BP goal < 130/80 Code(s): I10 - Essential (primary) hypertension Category: Medical Plan: Patient will try to take amlodipine 2.5 mg twice a day instead of 5 mg daily because of increasing in a blood pressure in the late evening, follow-up in 2 month (2) Hyperlipidemia: Code(s): E78.5 - Hyperlipidemia, unspecified Category: Medical Plan: Continue statin (3) Annual physical exam: Code(s): Z00.00 - Encounter for general adult medical examination without abnormal findings Category: Medical Plan: Well-balanced diet regular physical activity discussed (4) Complex regional pain syndrome type 2: Comment: f/u with neurology, controlled on Gabapentin Code(s): G56.40 - Causalgia of unspecified upper limb Category: Medical Plan: Continue gabapentin (5) Anxiety and depression: Code(s): F41.9 - Anxiety disorder, unspecified; F32.A - Depression, unspecified Category: Medical Plan: Continue sertraline follow-up with therapy Medications: New amlodipine 2.5 mg PO BID 180 tabs 3RF Discontinued amlodipine Discontinued Reason: Doctor's Order 5 mg PO DAILY 90 tabs 1RF
[2025-04-20 10:27] VITALS: BP 110/68; PULSE 65; RESP 18; TEMP 36.6; O2SAT 98; BMI 25.7
== END 2025-04-20 12:28 | disposition home or self-care (01) ==
LOC: HO.HMCC 10:02
PROVIDERS: PCP Internal Medicine; Visit Provider Internal Medicine
DX: I10 Essential (primary) hypertension (principal); E78.5 Hyperlipidemia, unspecified; Z00.00 Encounter for general adult medical examination without abnormal findings; G56.40 Causalgia of unspecified upper limb; F41.9 Anxiety disorder, unspecified; F32.A Depression, unspecified

== ENCOUNTER → 2025-04-20 10:01 | Outpatient (BNVA) | payer OTHER, SELFPAY | PROVIDERS: PCP Internal Medicine; Visit Provider Internal Medicine | DX: Z00.00 Encounter for general adult medical examination without abnormal findings (principal); I10 Essential (primary) hypertension; E78.5 Hyperlipidemia, unspecified; G56.40 Causalgia of unspecified upper limb; F41.9 Anxiety disorder, unspecified; F32.A Depression, unspecified; Z79.899 Other long term (current) drug therapy; Z13.30 Encounter for screening examination for mental health and behavioral disorders, unspecified; Z13.31 Encounter for screening for depression | CPT/HCPCS: 96127; 99396 ==

== ENCOUNTER 2025-07-01 08:40 | Outpatient (AMB) | payer OTHER, SELFPAY ==
[2025-07-01 08:48] VITALS: BP 114/71; PULSE 74; RESP 18; O2SAT 100
--- NOTE | 2025-07-01 08:48 | A.OFFVIS_ITS ---
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 Today she reported swelling of the left upper extremity starting at the fingers and going into the forearm and sometimes spreading to the arm, she reports discoloration of the left upper extremity and weakness of the left upper extremity. Initially we suspected that this pain is coming from her neck, she was sent for the MRI of the cervical spine and she was sent for the neurosurgical evaluation. Neurosurgery did not find any nerve root compression which could explain her numbness. They sent her for the MRI of the brain which was entirely normal. The patient was sent back to pain management. Thinking about Complex regional pain syndrome of the left lower extremity and symptoms described above I would need to presume diagnosis of Complex regional pain syndrome of the left upper extremity. I will send her for physical therapy. The patient has Complex regional pain syndrome of the left lower extremity for which was treated in the past with [employer] SCS. Possibility exists perform trial of the cervical positioned SCS and connected to existing battery. Patient agreed to go for physical therapy. She also will think about [employer] SCS system expansion the treat her hand pain. Her pain and numbness in the left upper extremity continues to progress. Now she agrees with me that she needs to see a neurosurgeon. I will schedule her for appointment with neurosurgeon and I will schedule her for the MRI of the cervical spine in [facility] so the fresh MRI will be ready close with the time of the appointment with neurosurgery. If there is no neurosurgical indications to perform the surgery on her neck extension of the spinal cord stimulator [employer] could be performed with position of the leads in the cervical epidural space. We would need to do a trial, before the trial she would need to go for yet another psychological evaluation. Her spinal cord stimulator is working well and covering her pain in mostly left lower extremity. She is suffering from Complex regional pain syndrome of the left lower extremity. She received [employer] SCS in the thoracic position to treat Complex regional pain syndrome on the left. She still reports some discomfort in the left lower extremity however this is not the main focus of her visit today. She reports that SCS works very well for her she enjoys stimulation. However she reports pain in the left upper extremity. She reports today pain 5/10 in the left upper extremity. She reports arm pain and hand pain. She wants me to review the MRI of the cervical spine which was performed in [place] in [place]. We will send the request for that MRI to obtain. She also had EMG at the [facility] she will fax results of EMG to us she has it available at home. She is interested in her pain on the left side hand with [employer] extension of spinal cord stimulator. If there is no red flags on MRI I will schedule her for the cervical trial however I am afraid that she needs to repeat her psychological evaluation. [facility] Medical History (Updated 07/01/25 @ 09:24 by Sergei Russell MD) Anxiety and depression Palpitations Annual physical exam Left leg weakness Complex regional pain syndrome type 2 Complex regional pain syndrome Foot drop, left Cervical radiculopathy History of mammogram Hyperlipidemia HTN (hypertension) Disc degeneration, lumbar Surgical History History of esophagogastroduodenoscopy (EGD) S/P insertion of spinal cord stimulator Hx of appendectomy S/P breast implant, silicone H/O colonoscopy Family History Father Lung cancer Smoker Mother HTN (hypertension) Diabetes mellitus Brother No problems noted. Son No problems noted. Daughter No problems noted. 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 Cognitive needs: No Hearing needs: No Vision needs: Yes Review of Systems Const All systems reviewed & are unremarkable except as noted in HPI and below ENT Denies Normal hearing present Neuro Denies Normal hearing present, Denies Abnormal speech present and Denies confusion Psych Denies confusion Physical Exam Vital Signs: Last Vital Signs Pulse 74 07/01/25 08:48 Resp 18 07/01/25 08:48 BP 114/71 07/01/25 08:48 Pulse Ox 100 07/01/25 08:48 Oxygen Delivery Method Room Air 07/01/25 08:48 Const General: cooperative, healthy appearing, no acute distress, alert and well groomed; No confusion Orientation/consciousness: patient oriented x3 and No confusion Limitations: other limitations (AFO brace of LLE) HEENT Head: Yes normocephalic and Yes atraumatic Ears: hearing grossly normal bilaterally Eyes General: appearance normal, both eyes and all related structures Eyelids: Yes eyelids normal Pupils: Equal, round and reactive pupils present EOM: EOMs intact bilaterally Neck Other: Objective weakness of the left upper extremity, Reports swelling and discoloration of the left upper extremity reports weakness of the left upper extremity. Resp Effort & Inspection: normal respiratory effort, able to speak in complete sentences and no audible wheezes Cardio Jugular venous distension: no JVD Back/Spine/Pelvis Other: site c/d/i Neuro General: patient oriented x3, gait normal, moves all extremities and No confusion Cranial nerves: Yes Equal, round and reactive pupils present and No Normal hearing present Speech: No Abnormal speech present Extrem Other: Normal range of motion of the left knee, no crepitus, no signs of the knee instability. Psych Appearance: grossly normal Mental Status: mental status grossly normal Speech and movement: Normal speech and movement present Affect: normal affect Attitude: cooperative Thought process: Normal thought process present Thought content: Normal thought content present Insight: Good insight present (Psych) Judgement: Good judgement present (Psych) Results Reviewed Results Reviewed: MRI cervical spine without contrast Comparison: None Findings: Multilevel minimal central osteophytosis. This is seen from C3-4 to C6-7. No significant canal or neural foraminal narrowing. Multilevel bilateral perineural cysts noted. Remaining levels are unremarkable. No acute bony signal abnormality identified. Posterior bony alignment is normal. Cervical cord normal in course and caliber. No internal cord signal abnormality. Impression: No significant abnormality MRI of the brain [facility] MRI 02/25/2025 Findings: Brain no diffusion abnormality. No mass or extra-axial fluid collection. No hydrocephalus. The major intracranial flow voids are preserved. Age come in she rates ventricles and sulci. Orbits normal. Sinuses mastoids mild mucosal thickening with small mucous retention cysts along the floor of the maxillary antra. There is layering debris of the posterior right maxillary antrum. Moderate diffuse mucosal thickening of the ethmoids. Mild mucosal thickening of the left anterior sphenoid sinus and frontal ethmoid recesses. Small right forward projection nasal septal spur. Calvarium normal. The visualized skull base soft tissues are normal. Assessment & Plan Assessment & Plan (1) Complex regional pain syndrome i of left upper limb: Code(s): G90.512 - Complex regional pain syndrome I of left upper limb Category: Medical (2) Patellofemoral dysfunction: Code(s): M25.869 - Other specified joint disorders, unspecified knee Category: Medical (3) Upper extremity weakness: Code(s): R29.898 - Other symptoms and signs involving the musculoskeletal system Category: Medical (4) Spondylosis of cervical spine: Code(s): M47.812 - Spondylosis without myelopathy or radiculopathy, cervical region Category: Medical (5) Degeneration, intervertebral disc, cervical: Code(s): M50.30 - Other cervical disc degeneration, unspecified cervical region Category: Medical (6) Left arm weakness: Code(s): R29.898 - Other symptoms and signs involving the musculoskeletal system Category: Medical Plan Normal results of the neck MRI and brain MRI make me think about Complex regional pain syndrome of the left upper extremity. This is expansion of her condition the Complex regional pain syndrome of the lower extremity. She already has [employer] SCS to treat her for the Complex regional pain syndrome of the lower extremity. I will send her for physical therapy to address pain in the left upper extremity. With physical therapy completed if condition of the left upper extremity will not be improved patient can not be offered [employer] [facility]CS additional 2 leads to treat patient's Complex regional pain syndrome of the left upper extremity. She will complete physical therapy and will schedule appointment with me when we will discuss possibility of treatment of her condition with expansion of [employer] SCS. She would need to complete psychological evaluation again for this condition. Orders: Orders PT Evaluation and Treatment Today G90.512 - Complex regional pain syndrome I of left upper limb Patient Instructions: I here by testify that I spent 32 minutes in conversation with this patient as well as planning her care and organizing this note. Coding Level of Care Code Est Pt Level 4 (36154) Diagnoses Complex regional pain syndrome i of left upper limb G90.512 Patellofemoral dysfunction M25.869 Upper extremity weakness R29.898 Spondylosis of cervical spine M47.812 Degeneration, intervertebral disc, cervical M50.30 Left arm weakness R29.898
--- OUTSIDE RECORDS SUMMARY | 2025-07-01 09:21 | XMS_ITS | Encounter Summary ---
Author Organization [facility] Address [address] [place] [id number] Phone Care Team Providers Care Rattan Worker Name Role Phone Joseline Hernandez MD Primary Care Provider [phone] Encounter Details Date Type Department Care Team ([facility] st Contact Info) Description 12/01/2020 Procedure Pass MRI, [facility] - [address] [place] [address] Social History Tobacco Use Types Packs/Day Years Used Date Smoking Tobacco: Never Assessed Comments Unknown Sex and Gender Information Value Date Recorded Sex Assigned at Female 07/05/2020 9:21 AM EDT Legal Sex Female 9:11 AM EDT Gender Identity Female 07/05/2020 9:21 AM EDT Sexual Orientation Straight 07/05/2020 9: 21 AM EDT documented as of this encounter Plan of Treatment Not on file documented as of this encounter Visit Diagnoses Not on filedocumented in this encounter Care Teams Rattan Worker Relationship Specialty Start Date End Date Joseline Hernandez MD [address] [place] [address] PCP - General Internal Medicine 07/05/20 documented as of this encounter Additional Source Comments The information contained in this document represents components of the legal health record. It is not the complete legal health record.[facility]
--- OUTSIDE RECORDS SUMMARY | 2025-07-01 09:21 | XMS_ITS | Clinical Summary ---
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 pylori-positive COLONOSCOPY 02/20/2008 PROCEDURE: ND COLONOSCOPY FLX DX W/COLLJ SPEC WHEN PFRMD; COMMENT: Negative/incomplete examination to mid transverse colon. APPENDECTOMY PROCEDURE: ND APPENDECTOMY Medical History Medical History Date Comments [...] Cervical Cancer Screening: P ap Smear 1996 COVID-19 Vaccine (2023-2 5 season) 2024 03/30/2021, 03/07/2021 Depression Screening 11/12/2024 Cholesterol Screening (Lipid Panel) 02/14/2025 Colorectal Cancer Screening: Colonoscopy 02/14/2025 HIV Screening 02/14/2025 Hepatitis C Screening 02/14/2025 Medicare Annual Wellness Visit 02/14/2025 Social Influencers of Health Screening 02/14/2025 Hypertension/CHF/CAD Annual BMP Blood Test 02/23/2025 Influenza Vaccine (#1) 2025 08/12/2017 DTaP,Tdap,and Td Vaccines (3 - Td or Tdap) 05/14/2030 05/14/2020, 11/18/2007 HIB Vaccines Aged Out No longer eligi [...] age to complete this topic Meningococcal B Vaccine Aged Out No l onger eligible based on patient's age to complete this topic Pneumococcal Vaccine: Pediatrics (0 to 5 Years) and At-Risk Patients (6 to 49 Years) Aged Out No longer eligible b ased on patient's age to complete this topic RSV Immunization Patients Under 20 months Aged Out No longer eligible b ased on patient's age to complete this topic Varicella Vaccines Aged Out No longer eligible based on patient's age to complete this topic Insurance MEDICAID - [place] [employer] MEDICARE Member Subscriber Plan / Payer (Ef fective 2023-Present) Name:YANETH GUO Relation to Subscriber:Self Name:Yaneth Guo Payer ID:[id number] Group ID:[id number] Type:Not on file Address: 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
== END 2025-07-01 09:03 | disposition home or self-care (01) ==
LOC: HO.PMC 08:41
PROVIDERS: PCP Internal Medicine; Visit Provider Anesthesiology
DX: G90.512 Complex regional pain syndrome I of left upper limb (principal); M25.869 Other specified joint disorders, unspecified knee; R29.898 Other symptoms and signs involving the musculoskeletal system; M47.812 Spondylosis without myelopathy or radiculopathy, cervical region; M50.30 Other cervical disc degeneration, unspecified cervical region
CPT/HCPCS: 99214

== ENCOUNTER → 2025-07-01 08:40 | Outpatient (BNVA) | payer OTHER, SELFPAY | PROVIDERS: PCP Internal Medicine; Visit Provider Anesthesiology | DX: G90.512 Complex regional pain syndrome I of left upper limb (principal); M25.869 Other specified joint disorders, unspecified knee; R29.898 Other symptoms and signs involving the musculoskeletal system; M47.812 Spondylosis without myelopathy or radiculopathy, cervical region; M50.30 Other cervical disc degeneration, unspecified cervical region | CPT/HCPCS: 99212 ==

== ENCOUNTER 2025-07-17 13:42 | Outpatient (AMB) | payer OTHER, SELFPAY ==
[2025-07-17 13:56] VITALS: BP 110/72; PULSE 75; RESP 18; TEMP 36.5; O2SAT 98; BMI 25.3
--- NOTE | 2025-07-17 13:56 | MHC.PC.OV ---
Vital Signs 07/17/25 13:56 Height 5 ft 3 in Weight 143 lb BMI 25.3 BP 110/72 Blood Pressure Location Lt brachial Position Sitting Respiration 18 Pulse 75 Pulse Source Pulse Oximeter Temp 97.7 F Temp Source Oral Pulse Oximetry (%) 98 Oxygen Delivery Method Room Air Intake Visit Reasons: Follow up on HTN. Intake Note: Pt is here today for a follow up visit on HTN. Allergies pravastatin Allergy (Unknown, Verified 07/17/25 13:57) Stomach Upset lisinopril Adverse Reaction (Verified 07/17/25 13:57) cough Medication List - Last Reconciled 07/17/25 by Joseline Hernandez MD amlodipine 2.5 mg PO BID gabapentin 300 mg PO TID 30 days lorazepam 0.25 mg PO DAILY PRN metoprolol tartrate 25 mg PO BID omeprazole 20 mg PO DAILY rosuvastatin 10 mg PO DAILY sertraline 25 mg PO BID triamcinolone acetonide 0.025% 1 appl topical DAILY Tobacco use date assessed: 07/17/25 Dental Screening Dental Screen Date: 04/20/25 HPI Follow up on HTN. HPI Details Pt presents for f/u HTN and hyperlipid, stable on meds [facility] Medical History Anxiety and depression Palpitations Annual physical exam Left leg weakness Complex regional pain syndrome type 2 Complex regional pain syndrome Foot drop, left Cervical radiculopathy History of mammogram Hyperlipidemia HTN (hypertension) Disc degeneration, lumbar Surgical History History of esophagogastroduodenoscopy (EGD) S/P insertion of spinal cord stimulator Hx of appendectomy S/P breast implant, silicone H/O colonoscopy Family History Father Lung cancer Smoker Mother HTN (hypertension) Diabetes mellitus Brother No problems noted. Son No problems noted. Daughter No problems noted. Social History Household Members Other:: 2 teenagers Housing: House Alcohol intake: current Alcohol intake frequency: a few times a month Comment: LEFT FOOT DROP, IMPLANTED STIMULATOR Patient Tobacco Use Status: Never used Tobacco e-Cigarette/Vaping Use: Never Used service: No Current occupational status: unemployed and disabled Current occupation: [employer]ING [employer] Cognitive needs: No Hearing needs: No Vision needs: Yes Questionnaire PHQ-9 Over the last 2 weeks, how often have you been bothered by any of the following problems? 1. Little interest or pleasure in doing things: several days 2. Feeling down, depressed, or hopeless: several days 3. Trouble falling or staying asleep, or sleeping too much: several days 4. Feeling tired or having little energy: several days 5. Poor appetite or overeating: not at all 6. Feeling bad about yourself - or that you are a failure or have let yourself or your family down: not at all 7. Trouble concentrating on things, such as reading the newspaper or watching television: not at all 8. Moving or speaking so slowly that other people could have noticed. Or the opposite - being so fidgety or restless that you have been moving around a lot more than usual: not at all 9. Thoughts that you would be better off or of hurting yourself in some way: not at all Total score: 4 Depression Screening Interpretation: Negative Depression Screening Done: Yes 83726 - PHQ-9 Billing: Yes Source: Developed by Drs. Joe Wheeler, Georgiana Aceves, Ricco Amaro and colleagues, with an educational carlitos from [employer]. Thrive Questionnaire Date Thrive assessed: 07/17/25 I am a: Patient What is your living situation today?: I have a steady place to live Within the past 12 months, did the food you bought not last and you didn't have the money to get more?: I choose not to answer this question Within the past 12 months, did you worry whether your food would run out before you got money to buy more?: Never true Do you have trouble paying for medicines?: No Do you have trouble getting transportation to medical appointments?: No Do you have trouble paying your heating and electricity bill?: No Do you have trouble taking care of your child, family member or friend?: No Do you have trouble with day-to-day activities such as bathing, preparing meals, shopping, managing finances, etc.?: I choose not to answer this question Are you currently unemployed and looking for a job?: I choose not to answer this question Are you interested in more education?: No Please select the resources that you would like help with: None Currently or been in a relationship where the following occur: No concerns reported THRIVE Score: 0 MOUNA-7 AMB Questionnaire MOUNA-7 Date MOUNA - 7 assessed: 07/17/25 Feeling nervous, anxious, or on edge: 2 = More than half the days Not being able to stop or control worryin = Several days Worrying too much about different things: 1 = Several days Trouble relaxin = Several days Being so restless that it is hard to sit still: 1 = Several days Becoming easily annoyed or irritable: 1 = Several days Feeling afraid as if something awful might happen: 1 = Several days Total MOUNA-7 score (0-4 normal; 5-9 mild; 10-14 moderate; 15-21 severe): 8 Source: Developed by Drs. Joe Wheeler, Georgiana Aceves, Ricco Amaro and colleagues, with an educational carlitos from [employer]. MOUNA-7 Assessment Billing MOUNA-7 Assessment Tool: MOUNA-7 Assessment 04826 Review of Systems Const All systems reviewed & are unremarkable except as noted in HPI and below ENT Reports no additional complaints Card Reports no additional complaints Resp Reports no additional complaints GI Reports no additional complaints Reports no additional complaints Physical exam (Primary Care) Vital Signs: Last Vital Signs Temp 97.7 F 07/17/25 13:56 Pulse 75 07/17/25 13:56 Resp 18 07/17/25 13:56 BP 110/72 07/17/25 13:56 Pulse Ox 98 07/17/25 13:56 Oxygen Delivery Method Room Air 07/17/25 13:56 BMI result Body Mass Index 25.3 Tobacco/Smoking Status: Tobacco use Status Tobacco use date assessed 07/17/25 07/17/25 14:05 Patient Tobacco Use Status Never used Tobacco 07/17/25 14:05 e-Cigarette/Vaping Use Never Used 07/17/25 13:56 PHQ-9: PHQ-9 Score PHQ-9: Total score 4 07/17/25 14:19 Depression Screening Interpretation: Negative Thrive Assessment: Date of Thrive Assessment Date Thrive assessed 07/17/25 07/17/25 14:05 Currently or been in a relationship where the following occur: No concerns reported Const General: no acute distress HENMT Head: Yes normal to inspection Mouth: Normal oral and palatal mucosa present Eyes General: appearance normal, both eyes and all related structures Neck Neck: Yes no lymphadenopathy and Yes supple Resp Effort & Inspection: normal respiratory effort Auscultation: clear to auscultation bilaterally Cardio Rhythm: regular rhythm Heart sounds: S1 normal heart sound present and S2 normal heart sound present GI Inspection: Yes normal to inspection Palpation (GI): Soft to palpation Percussion: Yes normal to percussion Coding Level of Care Code Est Pt Level 4 (86135) Diagnoses HTN (hypertension) I10 Hyperlipidemia E78.5 Additional Codes MOUNA-7 Assessment Billing - MOUNA-7 Assessment Tool: MOUNA-7 Assessment 70886 ([id number]) PHQ-9 - 23917 - PHQ-9 Billing: Yes ([id number]) Assessment & Plan Assessment & Plan (1) HTN (hypertension): Comment: BP goal < 130/80 Code(s): I10 - Essential (primary) hypertension Category: Medical Plan: cont meds (2) Hyperlipidemia: Code(s): E78.5 - Hyperlipidemia, unspecified Category: Medical Plan: cont statin, f/u 4 months Orders: Orders Lipid Panel 4 Months E78.5 - Hyperlipidemia, unspecified, I10 - Essential (primary) hypertension Comprehensive [place]. Panel Fast 4 Months E78.5 - Hyperlipidemia, unspecified, I10 - Essential (primary) hypertension Complete Blood Count Auto Diff 4 Months E78.5 - Hyperlipidemia, unspecified, I10 - Essential (primary) hypertension
--- OUTSIDE RECORDS SUMMARY | 2025-07-17 14:11 | XMS_ITS | Encounter Summary ---
Author Organization [facility] Address [address] [facility] [address] [place] [id number] Phone Care Team Providers Care Real Estate Services Coordinator Name Role Phone Joseline Hernandez MD Primary Care Provider [phone] Encounter Details Date Type Department Care Team ([facility] st Contact Info) Description 12/01/2020 Procedure Pass MRI, [facility] [address] [place] [address] Social History Tobacco Use Types Packs/Day Years [...] on filedocumented in this encounter Care Teams Real Estate Services Coordinator Relationship Specialty Start Date End Date Joseline Hernandez MD [address] [place] [address] PCP - General Internal Medicine 07/05/20 documented as of this encounter Additional Source Comments The information contained in this document represents components of the legal health record. It is not the complete legal health record.[facility]
--- OUTSIDE RECORDS SUMMARY | 2025-07-17 14:11 | XMS_ITS | Clinical Summary ---
Author Organization [facility] Address [address] [place] [address] Phone Care Team Providers Care Radio Program Director Name Role Phone Mayda Pedro MD Primary Care Provider Surgical History Surgery Date Site/Laterality Comments OTHER SURGICAL HISTORY PROCEDURE: IMPLANT BREAST SILICONE/EQ ESOPHAGOGASTRODUODENOSCOPY 02/20/2008 PROCEDURE: [place] EGD TRANSORAL BIOPSY SINGLE/MULTIPLE; COMMENT: Biopsy for H. pylori-positive COLONOSCOPY 02/20/2008 PROCEDURE: [place] COLONOSCOPY FLX DX W/COLLJ SPEC WHEN PFRMD; COMMENT: Negative/incomplete examination to mid transverse colon. APPENDECTOMY PROCEDURE: KS APPENDECTOMY Medical History Medical History Date Comments [...] Cervical Cancer Screening: P ap Smear 1996 Depression Screening 11/12/2024 Cholesterol Screening (Lipid Panel) 02/14/2025 Colorectal Cancer Screening: Colonoscopy 02/14/2025 HIV Screening 02/14/2025 Hepatitis C Screening 02/14/2025 Medicare Annual Wellness Visit 02/14/2025 Social Influencers of Health Screening 02/14/2025 Hypertension/CHF/CAD Annual BMP Blood Test 02/23/2025 COVID-19 Vaccine (3 - 2024-2 6 season) 2025 03/30/2021, 03/07/2021 Influenza Vaccine (#1) 2025 08/12/2017 DTaP,Tdap,and Td [...] to complete this topic Insurance MEDICAID - [place] [employer] MEDICARE Member Subscriber Plan / Payer (Ef fective 2023-Present) Name:YANETH GUO Relation to Subscriber:Self Name:Yaneth Guo Payer ID:[id number] Group ID:[id number] Type:Not on file Address: [address] [place] [address] Care Teams Radio Program Director Relationship Specialty Start Date End Date Mayda Pedro MD [address] [place] [address] PCP - General 09/24/02
--- OUTSIDE RECORDS SUMMARY | 2025-07-17 14:13 | XMS_ITS | Clinical Summary ---
Author Organization [facility] Address [address] [place] [phone] Phone Care Team Providers Care Paraoptometric Name Role Phone Joseline Hernandez MD Primary Care Provider [phone] Allergies Active Allergy Reactions Criticality Noted Date Comments Lisinopril Cough 12/01/2020 Medications amLODIPine, NORVASC, oral suspension 1 mg/mL (NORVASC) 1 mg/ml Susp oral suspension Take 7.5 mg by mouth daily. Active rosuvastatin (CRESTOR) 10 MG tablet Take 10 mg by mouth daily. Active sertraline (ZOLOFT) 25 MG tablet Take 25 mg by mouth daily. Active gabapentin (NEURONTIN) 300 MG capsule Take 300 mg by mouth 2 (two) times a day. Active omega 6-jxm-azc-fish oil 1,000 mg (120 mg-180 mg) Cap Take 1 capsule by mouth daily. Active znjxkome-lvq-xq rrous gluconate (CENTRUM WITH IRON) 9 mg iron/15 mL Liqd Take 15 mL by mouth daily. Active ascorbic acid, vitamin C, 500 mg/5 mL Syrp Take 500 mg by mouth 2 (two) times a day. Active metoprolol succinate (TOPROL-XL) 25 MG 24 hr tablet Take 25 mg by mouth daily. Active Active Problems Problem Noted Date Diagnosed Date Left leg weakness 11/23/2020 Family History Medical History Relation Comments Stroke Maternal Grandfather Dementia Maternal Grandmother Diabetes Mother Relation Status Comments Maternal Grandfather Maternal Grandmother Mother Social History Tobacco Use Types Packs/Day Years Used Date Smoking Tobacco: Never Assessed Education Answer Date Recorded Are you interested in more education? Not on gómez e 03/09/2023 Are you concerned about learning? Not on file 03/09/2023 No 03/09/2023 No 03/09/2023 Digital Access Answer Date Recorded No 04/07/2023 No 04/07/2023 Reliable internet access at home? Not on file 04/07/2023 Device with a working camera? Not on file Comments Unknown Sex and Gender Information Value Date Recorded Sex Assigned at Female 07/05/2020 9:21 AM EDT Legal Sex Female 9:11 AM EDT Gender Identity Female 07/05/2020 9:21 AM EDT Sexual Orientation Straight 07/05/2020 9: 21 AM EDT Last Filed Vital Signs Vital Sign Reading Time Taken Comments Blood Pressure 146/94 10/13/2020 2:26 PM EST Pulse 126 10/13/2020 2:26 PM EST Temperature 37.1 C (98.7 F) 10/13/2020 2:26 PM EST Respiratory Rate - - Oxygen Saturation 98% 10/13/2020 2:26 PM EST Inhaled Oxygen Concentration - - Weight 63.5 kg (140 lb) 10/13/2020 2:26 PM EST Height 160 cm (5' 3 ) 10/13/2020 2:26 PM EST Body Mass Index 24.8 10/13/2020 2:26 PM EST Plan of Treatment Health Maintenance Due Date Last Done Comments LIPID PANEL 1975 DEPRESSION SCREENING 1987 SMOKING Hx and SMOKELESS TOB ACCO SCREENING 1988 HEPATITIS C SCREENING 1993 PAP SMEAR 1996 MAMMOGRAM 2015 Adult Td,Tdap Booster 11/18/2017 11/18/2007 COLOGUARD 2020 COLONOSCOPY 2020 COLORECTAL CANCER SCREENING 2020 FIT TEST 2020 FOBT 2020 SIGMOIDOSCOPY 2020 VIRTUAL COLONOSCOPY 2020 INFLUENZA VACCINE (#1) 2025 08/12/2017 COVID-19 VACCINE (2 - 2024-2 6 season) 2025 03/07/2021 HIV ONE-TIME SCREENING (18-6 5 YEARS) Completed 12/04/2020 HEPATITIS A VACCINES Aged Out No long er eligible based on patient's age to complete this topic HIB VACCINES Aged Out No longer eligi ble based on patient's age to complete this topic MENINGOCOCCAL VACCINES (ACWY) Aged Out No longer eligible based on patient's age to complete this topic MENINGOCOCCAL VACCINES (B) Aged Out N o longer eligible based on patient's age to complete this topic PNEUMOCOCCAL VACCINES (0-49 years) Aged Out No longer eligible based on patient's age to complete this topic Medical Devices Not on file Insurance ACO ACO [place] [address] [place] [address] [place] [address] [place] [address] ACO ACO ACO ACO Care Teams Paraoptometric Relationship Specialty Start Date End Date Joseline Hernandez MD [address] [address] PCP - General Internal Medicine 8/24/20 Additional Source Comments The information contained in this document represents components of the legal health record. It is not the complete legal health record.[facility]
== END 2025-07-17 14:18 | disposition home or self-care (01) ==
LOC: HO.HMCC 13:42
PROVIDERS: PCP Internal Medicine; Visit Provider Internal Medicine
DX: I10 Essential (primary) hypertension (principal); E78.5 Hyperlipidemia, unspecified

== ENCOUNTER → 2025-07-17 13:42 | Outpatient (BNVA) | payer OTHER, SELFPAY | PROVIDERS: PCP Internal Medicine; Visit Provider Internal Medicine | DX: I10 Essential (primary) hypertension (principal); E78.5 Hyperlipidemia, unspecified | CPT/HCPCS: 96127; 99212 ==

== ENCOUNTER 2025-09-14 08:04 | Outpatient (RCR) | payer OTHER, SELFPAY ==
--- NOTE | 2025-09-14 08:55 | MHC.PT.DC ---
[facility] [place] Office [place] Office [place] Office [address] Gustavo Quintero [address] [phone] F: [phone] F: [phone] F: [phone] F: [phone] Physical Therapy Discharge Report Diagnosis: Complex regional pain syndrome I of L upper limb. 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 She reports her program was challenging though did not increase her symptoms and is encouraged to continue her program at home as able and follow up with her MD. Electronically signed by: Jason Gonsalez PT. Please sign and return to therapist. Thank you for your referral.
== END 2025-09-14 08:55 | disposition home or self-care (01) ==
LOC: HO.PT 08:04
PROVIDERS: PCP Internal Medicine; Visit Provider Anesthesiology
DX: G90.512 Complex regional pain syndrome I of left upper limb (principal)
CPT/HCPCS: 97110; 97112; 97161